=== PATIENT | male | born 1950 | race Caucasian/White ===

== ENCOUNTER 2023-05-11 15:28 | Inpatient (IN) | payer MEDICARE, SELFPAY ==
--- NOTE | ~2023-05-11 | US_ITS ---
EXAMINATION: ULTRASOUND LOWER EXTREMITY ARTERIAL, RIGHT TECHNIQUE: COLOR-FLOW DUPLEX IMAGING OF THE RIGHT LOWER EXTREMITY ARTERIAL SYSTEM. VELOCITY MEASUREMENTS THROUGHOUT THE FEMORAL ARTERIES. CLINICAL INFORMATION: Foot ulcer, question PAD COMPARISON: None. FINDINGS: RIGHT FEMORAL RUNOFF VELOCITIES: The right common femoral artery measures 178cm/s and is triphasic. The right profunda femoral artery measures 149cm/s and is biphasic. Right proximal superficial femoral artery measures 142 cm/s and is triphasic. Mid superficial femoral artery measures 146cm/s and is triphasic. Distal right superficial femoral artery [id number] and is triphasic. Collaterals are noted. Right popliteal velocity measures 185cm/s and is triphasic. Posterior tibial velocity is 49cm/s and flow is monophasic. Peroneal velocity is 145cm/s and flow is monophasic. Anterior tibial velocity is 24.6cm/s and flow is monophasic. Dorsal pedis velocity is 51cm/s and flow is monophasic. Right CHRIS: Not obtained Incidental note is made of right groin lymph nodes the largest measuring 3.2 x 1.1 x 2.5 cm. US/US arterial duplex LE RT IMPRESSION: 1. Patency of the visualized vascular visualized in the right lower extremity. 2. Predominantly infrapopliteal hemodynamic changes in vascular flow with monophasic waveforms throughout and likely an element of stenosis along the peroneal artery which demonstrates elevated velocities. 3. Collaterals are noted along the distal superficial femoral artery. 4. Incidental note is made of right groin lymph nodes the largest measuring 3.2 x 1.1 x 2.5 cm.
--- NOTE | ~2023-05-11 | XR_ITS ---
EXAMINATION: XR FOOT, RIGHT CLINICAL INFORMATION: Evaluate for osteomyelitis. COMPARISON: None available. TECHNIQUE: AP, lateral, and oblique views of the right foot. FINDINGS: Ulceration and swelling adjacent to the medial aspect of the first metatarsophalangeal joint with subtle cortical irregularity and focal lucency in the distal first metatarsal and base of the proximal first phalanx. No fractures or subluxation. Moderate multifocal osteoarthritis. Moderate calcaneal spurs. Scattered vascular calcifications. Diffuse soft tissue swelling. XR/XR foot RT min 3V IMPRESSION: Soft tissue swelling and ulceration adjacent to the medial aspect of the first metatarsophalangeal joint with subtle cortical irregularity and focal lucency in the distal first metatarsal and base of the proximal first phalanx; findings are concerning for osteomyelitis. Further characterization with MRI could be obtained if clinically deemed appropriate.
--- NOTE | ~2023-05-11 | MR_ITS ---
EXAMINATION: MRI FOOT WITHOUT AND WITH CONTRAST, RIGHT CLINICAL INFORMATION: Osteomyelitis. COMPARISON: X-ray 05/11/2023 TECHNIQUE: Imaging in a 1.5 Erica magnet without and with contrast. 10 mL Gadavist. FINDINGS: There is soft tissue swelling and skin ulceration along the plantar/medial aspect of the 1st MTP joint. There is air within the soft tissues. There is soft tissue swelling of the first toe. There is edema and enhancement compatible with cellulitis. There is a low T1/T2 signal curvilinear tract extending from the plantar skin to the medial aspect of the 1st MTP joint/marginating bones and the medial hallux sesamoid. Findings are concerning for a sinus tract. No organized fluid collection/drainable abscess is seen. There is bony irregularity and T2 bright signal in the medial hallux sesamoid, with low T1 signal. Findings suspicious for osteomyelitis. T2 bright signal at the medial aspect of the 1st metatarsal head, with intermediate signal changes, concerning for osteomyelitis. Increased T2 signal in the 1st proximal phalangeal base, concerning for osteomyelitis. Small 1st MTP joint effusion, with mild synovitis; this could represent reactive changes versus septic arthritis. Arthritis in the midfoot, including moderate 4th tarsometatarsal joint arthritis. There is edema in the intrinsic muscles of foot, can be seen with denervation changes versus myositis. Visualized tendons are intact. MR/MR foot RT wo/w con IMPRESSION: Soft tissue swelling and ulceration along the plantar/medial aspect of the 1st MTP joint/subjacent bones. There is edema/cellulitis in the soft tissues. There is a curvilinear low signal focus consistent with a sinus tract extending from the plantar skin to the underlying bones,as detailed above. No drainable fluid collection/abscess is seen. Abnormal findings in the medial aspect of 1st metatarsal head, 1st proximal phalangeal base, suspicious for osteomyelitis. Abnormal findings in the medial hallux sesamoid, nonspecific. Given the presence of soft tissue findings and sinus tract in this region,, osteomyelitis would need to be considered and excluded. Differential consideration includes sesamoiditis from other etiologies. Small 1st MTP joint effusion with mild synovitis. This could reflect reactive changes versus septic arthritis. Additional findings and details as above.
--- NOTE | ~2023-05-11 | US_ITS ---
EXAMINATION: US RETROPERITONEAL LIMITED (RENAL ONLY) CLINICAL INFORMATION: Elevated creatinine. COMPARISON: Renal ultrasound 09/12/2022. TECHNIQUE: Real-time imaging of the kidneys. FINDINGS: Examination is very limited secondary to patient body habitus and shadowing from overlying bowel gas. RIGHT KIDNEY: 11.5 x 7.5 x 6.3 cm (SAG x AP x TRV). The kidney is normal in size, contour, and echogenicity. Renal cortical thickness is normal. No calculi or focal parenchymal lesions. No hydronephrosis. LEFT KIDNEY: 11.9 x 6.2 x 5.4 cm (SAG x AP x TRV). The kidney is normal in size, contour, and echogenicity. Renal cortical thickness is normal. No calculi or focal parenchymal lesions. No hydronephrosis. US/US renal BI IMPRESSION: Very limited examination secondary to patient body habitus. No discrete hydronephrosis or nephrolithiasis.
--- NOTE | 2023-05-11 15:39 | ED.GENADULT ---
HPI - General Adult General Chief complaint: Extremity Injury, Lower Stated complaint: R Foot issue Time Seen by Provider: 05/11/23 16:34 Source: patient Mode of arrival: ambulatory Limitations: no limitations History of Present Illness HPI narrative: 72-year-old male with a history of bym-eascqrs-meljskgfi diabetes, hypertension, hyperlipidemia, diabetic neuropathy here with complaints of right foot wound. Patient reports 2 weeks ago he was in [place] and developed a blister on the right foot. Over the last 3-4 days he has had increasing redness, swelling of the right foot. He denies any fevers or chills. Patient reports that on 05/08 he was started on Bactrim. He had no improvement with Bactrim and so on 05/09 Levaquin was added. He has been taking both medications with no improvement. he denies fevers but has had chills. Patient does have neuropathy so he has no feeling in his foot so he does not elicit any pain. Related Data Allergies Allergy/AdvReac Type Severity Reaction Status Date / Time No Known Allergies Allergy Verified 05/11/23 15:42 [No Known Allergies*] Review of Systems Review of Systems: Yes all other systems are reviewed and are negative Constitutional: Constitutional: Reports no additional constitutional complaints, Denies body ache(s), Reports chills, Denies fever(s), Denies headache(s) and Denies weakness Eyes: Eyes: Reports no additional eye complaints and Denies change in vision ENT: Reports system reviewed and no additional complaints, except as documented, Denies dizziness, Denies headache(s), Denies nasal congestion, Denies nasal discharge and Denies neck pain Cardiovascular: Cardiovascular: Reports no additional cardiovascular complaints, Denies chest pain, Denies leg edema and Denies dyspnea Respiratory: Respiratory: Reports no additional respiratory complaints, Denies cough and Denies dyspnea Gastrointestinal: Gastrointestinal: Reports no additional gastrointestinal complaints, Denies abdominal pain, Denies diarrhea, Denies nausea and Denies vomiting Genitourinary: Genitourinary: Denies urinary incontinence Musculoskeletal: Musculoskeletal: Reports no additional musculoskeletal complaints, Denies back pain, Denies arthralgias, Denies joint swelling, Denies neck pain, Denies numbness and Denies tingling Integumentary/Breasts: Skin/Breast: Reports system reviewed and no additional complaints, except as docu, Reports swelling, Reports erythema, Denies rash and Reports wounds Neurologic: Reports system reviewed and no additional complaints, except as documented, Denies Abnormal speech present, Denies dizziness, Denies headache(s), Denies numbness, Denies tingling and Denies weakness PMFSH Past Medical History Attestation statement: The following information was validated with the patient. Source: old records reviewed and nursing notes reviewed Social History Social History Advance Directives: No Advance Directives Information Provided: No Physical Exam ED Vital Signs: Vital Signs - 24 hr 05/11/23 15:40 Temperature 97.7 F Pulse Rate 80 Respiratory Rate 16 Blood Pressure 118/48 L Pulse Oximetry 97 Oxygen Delivery Method Room Air BMI result Body Mass Index 33.2 Const General: cooperative, healthy appearing, comfortable and no acute distress Orientation/consciousness: patient oriented x3 Limitations: no limitations HENMT Head: Yes normal to inspection Ears: hearing grossly normal bilaterally General nose exam: Normal external nose present Face and sinus: Yes normal facial exam Mouth: Normal oral and palatal mucosa present Throat: Yes posterior oropharynx normal Eyes General: appearance normal, both eyes and all related structures Pupils: Equal, round and reactive pupils present Neck Neck: Yes normal visual inspection Chest Chest palpation & inspection: normal inspection of the chest Resp Effort & Inspection: normal respiratory effort Auscultation: clear to auscultation bilaterally Cardio Rate: regular rate Rhythm: regular rhythm Peripheral pulses: Peripheral pulses 2+ throughout GI Inspection: Yes normal to inspection Palpation (GI): Soft to palpation and nontender Auscultation: normal bowel sounds Back/Spine/Pelvis Thoracic/Lumbar Spine: thoracic and lumbar spine normal to inspection Skin General skin exam: no rashes or lesions noted Neuro General: patient oriented x3, no focal motor deficits and normal sensation to monofilament Cranial nerves: Yes Equal, round and reactive pupils present Cognition (Neuro): normal cognition Speech: No Abnormal speech present Gait exam (Neuro): Normal gait present Motor exam (neuro): 5/5 motor strength present throughout Extrem Other: 2+DP/PT pulses. Normal ROM. Course Course Course Narrative: RME- 72-year-old male presents for evaluation of a reported cellulitis to his right foot. He reports that he had a blister to the bottom of the foot that popped and started to get red and swollen about 1 week ago. He saw his PCP earlier today who referred him to the ER. Plan for labs including blood cultures and x-ray to evaluate for osteolytic changes Reevaluation(s) Reevaluation #1: reviewed labs which show leukocytosis, Anemia, BRITTNEY. BRITTNEY may be secondary to cellulitis and/or recent Bactrim use. Will start IV fluids Medications Administered Generic Name Dose Route Start Last Admin Trade Name Freq PRN Reason Stop Dose Admin Sodium Chloride 1,000 mls @ 999 mls/hr 05/11/23 16:55 05/11/23 16:58 Ns IV 05/11/23 17:55 999 mls/hr .Q1H1M STA Administration Discontinued Medications Generic Name Dose Route Start Last Admin Trade Name Freq PRN Reason Stop Dose Admin Piperacillin Sod/Tazobactam 50 mls @ 100 mls/hr 05/11/23 16:54 05/11/23 17:08 Sod 3.375 gm/ Sodium Chloride IV 05/11/23 17:23 100 mls/hr ONCE ONE Administration Medical Decision Making Medical Decision Making MDM Narrative: [id number] male with a history of miu-nvhyivz-lcmokmtzp diabetes, hypertension, hyperlipidemia, diabetic neuropathy here with complaints of right foot wound. Patient reports 2 weeks ago he was in [place] and developed a blister on the right foot. Over the last 3-4 days he has had increasing redness, swelling of the right foot. He denies any fevers or chills. Patient reports that on 05/08 he was started on Bactrim. He had no improvement with Bactrim and so on 05/09 Levaquin was added. He has been taking both medications with no improvement. he denies fevers but has had chills. Patient does have neuropathy so he has no feeling in his foot so he does not elicit any pain. see pictures in chart of foot. Will need labs including blood cultures and lactic acid, X-ray. at this time infection is suspected. Antibiotics ordered Differential Diagnosis Differential Diagnoses: The differential diagnosis associated with the presentation includes cellulitis, diabetic wound, osteomyelitis low concern for nec fasc with gradual onset, compartment syndrome with soft compressible compartments and or septic joint with FROM Admission/Observation Consideration of admission/observation: Escalation of care including admission/observation considered 72-year-old male with history of diabetes here with a wound to the right foot with active cellulitis despite to oral antibiotics outpatient with concern for osteomyelitis requiring IV antibiotics and admission Consult Healthcare Provider Management of the patient was discussed with: Surveying Teacher I spoke to Dr. Fortune who accepted admission Lab Data MDM Lab Attestation statement: I reviewed the patient's lab results. mild leukocytosis, anemia, renal failure 05/11/23 15:56 05/11/23 15:56 Labs: Lab Results 05/11/23 05/11/23 Range/Units 15:55 15:56 WBC 12.4 H (4.8-10.8) X10*3/uL RBC 3.11 L (4.60-5.80) X10*6/uL Hgb 9.9 L (14.0-18.0) g/dl Hct 29.2 L (42.0-52.0) % MCV 93.9 (80.0-98.0) fL MCH 31.8 (27.0-33.0) pg MCHC 33.9 (31.0-36.0) g/dl RDW 13.1 (11.0-16.0) % Plt Count 343 (160-400) X10*3/uL MPV 8.8 L (9.4-12.4) fL Immature Gran % (Auto) 0.5 H (0.0-0.4) % Neut % (Auto) 78.8 H (45-73) % Lymph % (Auto) 12.3 L (20-40) % [place] % (Auto) 7.7 (2-11) % Eos % (Auto) 0.5 (0-4) % Baso % (Auto) 0.2 (0-2) % Lymph # (Auto) 1.5 (1.2-4.9) X10*3/uL [place] # (Auto) 1.0 (0.1-1.2) X10*3/uL Eos # (Auto) 0.1 (0.0-0.4) X10*3/uL Baso # (Auto) 0.0 (0.0-0.2) X10*3/uL Abs Immat Gran (auto) 0.06 H (0.00-0.03) X10*3/uL Absolute Neuts (auto) 9.8 H (2.0-8.3) x10*3/uL Absolute Nucleated RBC 0.000 (0.0-0.012) X10*3/uL Nucleated RBC % (auto) 0.0 (0.0-0.2) /100WBC Sodium 134 L (135-145) mmol/L Potassium 4.2 (3.3-5.1) mmol/L Chloride 102 (96-108) mmol/L Carbon Dioxide 21 L (22-29) mmol/L Anion Gap 15 (12-20) BUN 26 H (9-16) mg/dL Creatinine 1.90 H (0.5-1.4) mg/dL Estim Creat Clear Calc 43.2 Estimated GFR 35 Random Glucose 216 H (60-115) mg/dL Lactic Acid 1.0 (0.5-2.0) mmol/L Calcium 10.7 H (8.4-10.2) mg/dL Total Bilirubin 0.5 (0.0-1.0) mg/dL AST 15 (5-37) U/L ALT 10 (0-40) U/L Alkaline Phosphatase 73 (39-117) U/L Total Protein 8.4 H (6.5-8.0) g/dL Albumin 4.0 (3.5-5.0) g/dL Lipase 24 (8-78) U/L Independent Interpretation I performed an independent interpretation of an: Plain X-Ray Interpretation: I independently reviewed the x-ray and agree with Radiology report Radiology Impression Discussion of test interpretation with radiology: I have reviewed the radiologist's reading. Radiologist Impression: [place] [id number] XRay Report Signed Patient: Julio Turk MR#: [id number] : 1950 Acct:[id number] Age/Sex: 72 / M ADM Date: 05/11/23 Loc: HO.ED Attending Dr: Ordering Physician: Tulio Charles Date of Service: 05/11/23 Procedure(s): XR foot RT min 3V Accession Number(s): [id number] cc: Emily Echols MD; Tulio Charles ~ EXAMINATION: XR FOOT, RIGHT CLINICAL INFORMATION: Evaluate for osteomyelitis. COMPARISON: None available. TECHNIQUE: AP, lateral, and oblique views of the right foot. FINDINGS: Ulceration and swelling adjacent to the medial aspect of the first metatarsophalangeal joint with subtle cortical irregularity and focal lucency in the distal first metatarsal and base of the proximal first phalanx. No fractures or subluxation. Moderate multifocal osteoarthritis. Moderate calcaneal spurs. Scattered vascular calcifications. Diffuse soft tissue swelling. XR/XR foot RT min 3V IMPRESSION: Soft tissue swelling and ulceration adjacent to the medial aspect of the first metatarsophalangeal joint with subtle cortical irregularity and focal lucency in the distal first metatarsal and base of the proximal first phalanx; findings are concerning for osteomyelitis. Further characterization with MRI could be obtained if clinically deemed appropriate. Discharge Plan Discharge Clinical Impression: Cellulitis, BRITTNEY (acute kidney injury), Leukocytosis, Anemia Patient Disposition: Admitted As Inpatient
[2023-05-11 15:40] VITALS: BP 118/48; PULSE 80; RESP 16; TEMP 36.5; O2SAT 97; BMI 33.2
[2023-05-11 16:10] LABS: MANUAL DIFF FLAG NO
[2023-05-11 16:11] LABS: Basophils Percent Auto 0.2 % (0-2); Eosinophils Absolute Auto 0.1 X10*3/uL (0.0-0.4); Eosinophils Percent Auto 0.5 % (0-4); Hematocrit 29.2 % (42.0-52.0); Hemoglobin 9.9 g/dl (14.0-18.0); Imm Gran Abs Auto 0.06 X10*3/uL (0.00-0.03); Imm Gran Pct Auto 0.5 % (0.0-0.4); Lymphocytes Absolute Auto 1.5 X10*3/uL (1.2-4.9); Lymphocytes Percent Auto 12.3 % (20-40); Mean Corpuscular HGB Conc 33.9 g/dl (31.0-36.0); Mean Corpuscular Hemoglobin 31.8 pg (27.0-33.0); Mean Corpuscular Volume 93.9 fL (80.0-98.0); Mean Platelet Volume 8.8 fL (9.4-12.4); Monocytes Percent Auto 7.7 % (2-11); Neutrophils Absolute Auto 9.8 x10*3/uL (2.0-8.3); Neutrophils Percent Auto 78.8 % (45-73); Platelet Count 343 X10*3/uL (160-400); Red Blood Count 3.11 X10*6/uL (4.60-5.80); Red Cell Distribution Width 13.1 % (11.0-16.0); White Blood Count 12.4 X10*3/uL (4.8-10.8)
[2023-05-11 16:27] LABS: Alanine Aminotransferase 10 U/L (0-40); Alkaline Phosphatase 73 U/L (39-117); Anion Gap 15 (12-20); Aspartate Amino Transferase 15 U/L (5-37); Bilirubin Total 0.5 mg/dL (0.0-1.0); Blood Urea Nitrogen 26 mg/dL (9-16); Calcium 10.7 mg/dL (8.4-10.2); Carbon Dioxide 21 mmol/L (22-29); Chloride 102 mmol/L (96-108); Creatinine Clr Calc Pharmacy 43.2; Estimated Glomerular Filt Rate 35; Glucose Random 216 mg/dL (60-115); Lipase 24 U/L (8-78); Potassium 4.2 mmol/L (3.3-5.1); Sodium 134 mmol/L (135-145); Total Protein 8.4 g/dL (6.5-8.0)
[2023-05-11] MEDS: 0.9 % Sodium Chloride 1,000 ML 999 ML IV (16:58)
[2023-05-11] MEDS: Piperacillin Sodium/Tazobactam 3.375 GM in 0.9 % Sodium Chloride 50 ML IV (17:08)
--- NOTE | 2023-05-11 17:09 | P.HPHOSP_ITS ---
History of Present Illness Date of Service: 05/11/23 <ANDRES Tamayo - Last Filed: 05/11/23 19:50> Attending physician on admission: Clifford Fortune <ANDRES Tamayo - Last Filed: 05/11/23 19:50> Chief Complaint: Right diabetic foot ulcer <ANDRES Tamayo - Last Filed: 05/11/23 19:50> Pt is a 72-year-old male with a PMH significant for?vlq-coiedtr-qacifmdtb diabetes type 2 with diabetic neuropathy, HTN, and HLD who presents to the ED for evaluation right foot wound and redness. Patient with diabetic peripheral neuropathy and states he does feel anything on the bottoms his feet. Two weeks prior pt was on a tour of [place] and reports walking much more than normal. Developed a blister on the bottom of his right foot that eventually popped. Last weekend the patient noticed his right foot beginning to get red and had foul-smelling discharge from the site of his previous blister. The patient saw his driller brake lining who started him on Bactrim on 05/08 and then added Levaquin on 05/09. Patient also spoke to his primary care earlier today who suggested he come to the emergency room for further evaluation and likely need for IV antibiotics. Patient does note that a few years back he developed a large blister at the same site on his right foot, though he did not experience any cellulitis or osteomyelitis at that time and it healed without the use of antibiotics. Reports feeling chills for the past 3 days, but has not taken his temperature. Denies any other systemic symptoms. No nausea, vomiting, abdominal pain. No diarrhea. Denies chest pain/pressure, palpitations. No shortness of breath. In the ED patient was afebrile, with slightly soft BP of 118/48, and satting at 97% on RA. Labs were significant for WBC 12.4, H&H 9.9/29.2, sodium 134, BUN 26, creatinine 1.90, random glucose 216 CRP 18.83, ESR pending. X-ray of right foot showed shows soft tissue swelling and ulceration adjacent to the medial aspect of the 1st metatarsophalangeal joint subtle cortical irregularity and focal lucency concerning for osteomyelitis. Pt was treated with vancomycin, Zosyn and IVF. Pt will be admitted to the hospital for treatment further evaluation of diabetic right foot ulcer concerning for osteomyelitis. <ANDRES Tamayo - Last Filed: 05/11/23 19:50> Review of Systems 2 Review of Systems: Right foot nonhealing ulcer with foul-smelling discharge Right foot erythema and swelling Chills, no measured fever Denies chest pain/pressure, palpitations No shortness of breath Denies nausea, vomiting, abdominal pain, diarrhea <ANDRES Tamayo - Last Filed: 05/11/23 19:50> [facility] Social History: Social History Household Members: None Housing: House Do you presently have visiting nurse or other home services: No Unable to assess alcohol history related to: Unknown Patient Tobacco Use Status: Former Tobacco user Smoked in Last 30 Days: No e-Cigarette/Vaping Use: Never Used Patient Interested in Nicotine Replacement: No Second Hand Smoke Exposure: No Currently Displaying Signs/Symptoms of Drug Intoxication Withdrawal: No Advance Directives: No Advance Directives Information Provided: No Do you have thoughts of harming others: None Do you have a plan to hurt others: No Plan Recently lost weight without trying: No Eating poorly because of decreased appetite: No Nutrition Risks: No Nutritional Risk Poor oral hygiene: No service: No <ANDRES Tamayo Last Filed: 05/11/23 19:50> Meds Allergies/Adverse reactions: Allergies Allergy/AdvReac Type Severity Reaction Status Date / Time No Known Allergies Allergy Verified 05/11/23 15:42 [No Known Allergies*] <ANDRES Tamayo - Last Filed: 05/11/23 19:50> Active Medications: Current Medications Piperacillin Sod/Tazobactam (Sod 3.375 gm/ Sodium Chloride) 50 mls @ 100 mls/hr IV ONCE ONE Stop: 05/11/23 17:23 Last Admin: 05/11/23 17:08 Dose: 100 mls/hr Vancomycin HCl (Vancomycin/Ns) 2,000 mg in 500 mls @ 250 mls/hr IV ONCE ONE Stop: 05/11/23 18:53 Sodium Chloride (Ns) 1,000 mls @ 999 mls/hr IV .Q1H1M STA Stop: 05/11/23 17:55 Last Admin: 05/11/23 16:58 Dose: 999 mls/hr <ANDRES Tamayo - Last Filed: 05/11/23 19:50> Home medications: Home Medications Medication Instructions Recorded Confirmed Last Taken Type allopurinol 300 mg tablet 300 mg PO Q5D 05/11/23 05/11/23 05/09/23 History aspirin 81 mg chewable tablet 81 mg PO DAILY 05/11/23 05/11/23 05/11/23 History cyanocobalamin (vitamin B-12) 1,000 mcg PO DAILY 05/11/23 05/11/23 05/11/23 History 1,000 mcg tablet gabapentin 300 mg capsule 300 mg PO TID 05/11/23 05/11/23 05/11/23 History levofloxacin 500 mg tablet 500 mg PO DAILY 05/11/23 05/11/23 05/11/23 History losartan 25 mg tablet 25 mg PO DAILY 05/11/23 05/11/23 05/11/23 History metformin 1,000 mg tablet 1,000 mg PO BID 05/11/23 05/11/23 05/11/23 History omega 1-opg-jzv-fish oil 1,000 mg 1 cap PO DAILY 05/11/23 05/11/23 05/11/23 History (120 mg-180 mg) capsule (Fish Oil) propranolol 60 mg tablet 10 mg PO BID 05/11/23 05/11/23 05/11/23 History rosuvastatin 40 mg tablet 40 mg PO BEDTIME 05/11/23 05/11/23 05/10/23 History silver sulfadiazine 1 % topical 1 appl topical Q OTHER DAY 05/11/23 05/11/23 Unknown History cream sulfamethoxazole 800 2 tab PO BID 05/11/23 05/11/23 05/11/23 History mg-trimethoprim 160 mg tablet trazodone 100 mg tablet 100 mg PO BEDTIME PRN Insomnia 05/11/23 05/11/23 Unknown History vitamin B complex 1 tab PO DAILY 05/11/23 05/11/23 05/11/23 History <ANDRES Tamayo - Last Filed: 05/11/23 19:50> Physical Exam 2 Vital Signs and Narrative: Vital Signs: Last Vital Signs Temp 97.7 F 05/11/23 15:40 Pulse 80 05/11/23 15:40 Resp 16 05/11/23 15:40 BP 118/48 L 05/11/23 15:40 Pulse Ox 97 05/11/23 15:40 O2 Del Method Room Air 05/11/23 15:40 BMI result Body Mass Index 33.2 <ANDRES Tamayo Last Filed: 05/11/23 19:50> General: AOx3, no acute distress Resp: CTA bilaterally CVS: S1, S2, RRR GI: +BS, NT, no distention Skin: No rash Neuro: Cranial nerves II-XII grossly intact bilaterally. Motor grossly intact bilaterally Extremities: No edema. Swelling of right foot and ankle. Wound with purulent discharge on the bottom of the right foot at first metatarsophalangel joint. Erythema over the dorsal aspect of right foot. As pictured below. Psych: Appropriate affect <ANDRES Tamayo Last Filed: 05/11/23 19:50> Results Labs CBC and Chem 7: 05/12/23 06:16 05/12/23 06:16 <ANDRES Tamayo Last Filed: 05/11/23 19:50> Labs: Laboratory Results - last 24 hr 05/11/23 05/11/23 15:55 15:56 MCV 93.9 MCH 31.8 MCHC 33.9 RDW 13.1 Plt Count 343 MPV 8.8 L Immature Gran % (Auto) 0.5 H Neut % (Auto) 78.8 H Lymph % (Auto) 12.3 L [place] % (Auto) 7.7 Eos % (Auto) 0.5 Baso % (Auto) 0.2 Lymph # (Auto) 1.5 [place] # (Auto) 1.0 Eos # (Auto) 0.1 Baso # (Auto) 0.0 Abs Immat Gran (auto) 0.06 H Absolute Neuts (auto) 9.8 H Absolute Nucleated RBC 0.000 Nucleated RBC % (auto) 0.0 Anion Gap 15 Estim Creat Clear Calc 43.2 Estimated GFR 35 Random Glucose 216 H Lactic Acid 1.0 Calcium 10.7 H Total Bilirubin 0.5 AST 15 ALT 10 Alkaline Phosphatase 73 Total Protein 8.4 H Albumin 4.0 Lipase 24 <ANDRES Tamayo Last Filed: 05/11/23 19:50> Assessment and Plan (1) BRITTNEY (acute kidney injury): Status: Acute <ANDRES Tamayo Last Filed: 05/11/23 19:50> (2) Osteomyelitis: Qualifiers: Laterality: right Osteomyelitis location: foot O steomyelitis type: other acute Qualified Code(s): M86.171 - Other acute osteomyelitis, right ankle and foot <ANDRES Tamayo - Last Filed: 05/11/23 19:50> Status: Acute <ANDRES Tamayo - Last Filed: 05/11/23 19:50> Pt is a 72-year-old male with a PMH significant for?kvh-dpryztg-ryhecaoiq diabetes type 2 with diabetic neuropathy, HTN, and HLD who presents to the ED for evaluation right foot wound and redness. Pt will be admitted to the hospital for treatment further evaluation of diabetic right foot ulcer concerning for osteomyelitis. Diabetic right foot ulcer concerning for osteomyelitis Right foot x-ray concerning for osteomyelitis, ESR 116, C-reactive protein 18.83 Patient does not meet sepsis criteria: WBC's, but no tachycardia, tachypnea, or fever; lactic acid WNL at 1.0 Will treat with IV ABX: Vancomycin, cefepime ID consult Wound care consult Will get arteriolar duplex of affected leg to evaluate for PAD Elevated creatinine, ?BRITTNEY Creatinine 1.90, baseline unknown though was 1.0 earlier in the year at [facility] [place] Patient given IVF in ED, will place on maintenance fluids Will get urine studies: Urine sodium, creatinine, osmolality Will get renal ultrasound Hold losartan Anemia H&H 9.9/29.2, unclear baseline Possibly anemia of chronic disease secondary to CKD Will also check iron studies, B12, folate Follow CBC HTN Continue propranolol Hold losartan d/t likely BRITNTEY, continue as warranted HLD Continue statin Insomnia Continue trazodone Bpk-hvkkrqt-jwqpgykpb diabetes type 2 with peripheral neuropathy Hold metformin Sliding-scale insulin Diabetic diet Continue gabapentin Full Code Attending:?Dr. Fortune DVT Prophylaxis: Lovenox Pt will require a hospitalization of at least two nights for treatment of?diabetic right foot ulcer concerning for osteomyelitis with IV antibiotics and specialist consultation. <ANDRES Tamayo - Last Filed: 05/11/23 19:50> Pt is a 72-year-old male with a PMH significant for?wil-xjyejew-hsliyuuak diabetes type 2 with diabetic neuropathy, HTN, and HLD who presents to the ED for evaluation right foot wound and redness. Pt will be admitted to the hospital for treatment further evaluation of diabetic right foot ulcer concerning for osteomyelitis. Diabetic right foot ulcer concerning for osteomyelitis Right foot x-ray concerning for osteomyelitis, ESR 116, C-reactive protein 18.83 Patient does not meet sepsis criteria: WBC's, but no tachycardia, tachypnea, or fever; lactic acid WNL at 1.0 Will treat with IV ABX: Vancomycin, cefepime ID consult Wound care consult Will get arteriolar duplex of affected leg to evaluate for PAD Elevated creatinine, ?BRITTNEY Creatinine 1.90, baseline unknown though was 1.0 earlier in the year at [facility] [place] Patient given IVF in ED, will place on maintenance fluids Will get urine studies: Urine sodium, creatinine, osmolality Will get renal ultrasound Hold losartan Anemia H&H 9.9/29.2, unclear baseline Possibly anemia of chronic disease secondary to CKD Will also check iron studies, B12, folate Follow CBC HTN Continue propranolol Hold losartan d/t likely BRITTNEY, continue as warranted HLD Continue statin Insomnia Continue trazodone Ogb-dyjcfdj-xcuqnmcru diabetes type 2 with peripheral neuropathy Hold metformin Sliding-scale insulin Diabetic diet Continue gabapentin Full Code Attending:?Dr. Fortune DVT Prophylaxis: Lovenox Pt will require a hospitalization of at least two nights for treatment of?diabetic right foot ulcer concerning for osteomyelitis with IV antibiotics and specialist consultation. Addendum to history and physical by the advanced practice provider, ANDRES Montez I interviewed and examined the patient. I discussed their presentation and management with the FÁTIMA. I reviewed the history and physical and agree with the documentation, with the following additions and corrections: 72yo M with DM2 + neuropathy, HTN, HLD presenting after developing a R foot blister 2 wk ago after hiking through [place] 1 wk ako developed redness around blister and purulent discharge Quarter Supervisor started him on SMX-TMP + levofloxacin Found to have osteomyelitis DM foot ulcer with osteomyelitis - vanco + cefepime, ID consultation, Wound Care consultation, vascular evaluation with Duplex, follow BCx, will need PICC when clear and long-term IV ABX at [facility] BRITTNEY - renal US, urine studies, hydrate, recheck BMP in AM anemia ?chronic - check B12, folate, iron HTN - continue propranolol, hold losartan DM2 - francis-dose lispro neuropathy - gabapentin VTE ppx - LMWH dispo - anticipate home with VNA <Clifford Fortune MD - Last Filed: 05/12/23 11:49> Time Spent With Patient Time: Total time managing care of this patient today ____ minutes. <ANDRES Tamayo - Last Filed: 05/11/23 19:50> Quality Stroke Does the patient have a stroke diagnosis?: No <ANDRES Tamayo - Last Filed: 05/11/23 19:50> VTE Prior VTE?: No <ANDRES Tamayo - Last Filed: 05/11/23 19:50> VTE Risk Level:: Medical - moderate - high <ANDRES Tamayo - Last Filed: 05/11/23 19:50> VTE Device Contraindication: Treatment Not Indicated <ANDRES Tamayo - Last Filed: 05/11/23 19:50> VTE Drug Contraindication: N/A - Med Ordered <ANDRES Tamayo - Last Filed: 05/11/23 19:50>
[2023-05-11 17:38] LABS: C Reactive Protein 18.83 mg/dL (< or = 0.50)
[2023-05-11] MEDS: vancomycin/NS 2,000 MG/500 ML PLAST..BAG 250 MG IV (18:14)
[2023-05-11 18:18] LABS: Glucose, Whole Blood 168 mg/dL (60-115)
[2023-05-11 18:33] LABS: Erythrocyte Sedimentation Rate 116 MM/HR (0-15)
[2023-05-11 19:01] VITALS: BP 130/53; PULSE 82; RESP 18; O2SAT 97
[2023-05-11 19:12] LABS: Iron 33 mcg/dL (45-160); Percent Iron Saturation 16 % (15-50); Total Iron Binding Capacity 203 mcg/dL (228-428); Unsaturated Iron Binding 170 ug/dL
[2023-05-11] MEDS: Lactated Ringers 1,000 ML 100 ML IVCONT (19:19)
[2023-05-11] MEDS: Enoxaparin Sodium 40 MG/0.4 ML SYRINGE SUBCUT (19:20)
--- NOTE | 2023-05-11 19:30 | PC.NURSE ---
Attempted to give report at 1930, RN will call back
[2023-05-11 21:12] VITALS: BP 146/63; PULSE 83; RESP 20; TEMP 36.7; O2SAT 96
[2023-05-11 21:20] LABS: Glucose, Whole Blood 229 mg/dL (60-115)
[2023-05-11] MEDS: Propranolol HCL 10 MG TABLET PO (21:36)
[2023-05-11] MEDS: Atorvastatin Calcium 80 MG TABLET PO (21:36)
[2023-05-11] MEDS: Gabapentin 300 MG CAPSULE PO (21:36)
[2023-05-11] MEDS: Insulin Lispro 100 UNIT/ML 3 ML VIAL SUBCUT (21:38)
[2023-05-11 21:46] VITALS: BMI 33.3
--- NOTE | 2023-05-11 21:53 | PHA.PROG ---
Admission Date/Time: May 11, 2023 17:58 Indication Bone and Joint Weight in k.1 kg Adjusted body weight in K.8 [place] body weight in K Obesity Dosing Indication % IBW: 143% Serum Creatinine - Last 168 Hours 05/11/23 15:56 Creatinine 1.90 H Estimated CrCl and GFR - Last 168 Hours 05/11/23 15:56 Estim Creat Clear Calc 43.2 Estimated GFR 35 Vancomycin Loading Dose: 2000mg Current Vancomycin Dosing Regimen: 1250 mg Q24H Date and Time for next Vancomycin Level to be drawn: 05/14 @ 1600 Pharmacist Comments on Vancomycin Plan: Patient received an adequate load dose in the er 05/11 @ 1814 Maintenance dose vanocmyinc 1250 mg Q24H is scheduled to start 05/12 @ 1800. Expected AUC 517 with a trough of 17.2 Patient is obese with %IBW > 130 therefore carefule monitor is required due to vancomycin high volume of distribution Pharmacy will monitor renal function daily Samara Catherine, Delfino Vancomycin dosing will take advantage of [employer] as a clinical decision support tool that uses Bayesian modeling to calculate individual patient's pharmacokinetic parameters and forecast the patient's drug concentration time course with the target goal AUC 24 range of 400 - 600 mg/L/hr.
[2023-05-11] MEDS: cefEPime HCl 1 GM in 0.9 % Sodium Chloride 50 ML IV (22:47)
[2023-05-11] MEDS: traZODone HCL 100 MG TABLET PO (22:48)
[2023-05-12 00:56] LABS: Osmolality Urine 599 mosm/kg (373-1093)
[2023-05-12 00:57] LABS: Creatinine Urine 140.73 mg/dL
[2023-05-12 04:23] VITALS: BP 126/89; PULSE 75; RESP 16; TEMP 37.2; O2SAT 97
[2023-05-12] MEDS: Lactated Ringers 1,000 ML 100 ML IVCONT ×2 (05:26→17:08)
[2023-05-12 06:34] LABS: Hematocrit 24.1 % (42.0-52.0); Hemoglobin 8.3 g/dl (14.0-18.0); Mean Corpuscular HGB Conc 34.4 g/dl (31.0-36.0); Mean Corpuscular Hemoglobin 31.8 pg (27.0-33.0); Mean Corpuscular Volume 92.3 fL (80.0-98.0); Mean Platelet Volume 8.6 fL (9.4-12.4); Platelet Count 260 X10*3/uL (160-400); Red Blood Count 2.61 X10*6/uL (4.60-5.80); Red Cell Distribution Width 12.8 % (11.0-16.0)
[2023-05-12 06:53] LABS: Anion Gap 14 (12-20); Blood Urea Nitrogen 18 mg/dL (9-16); Calcium 9.3 mg/dL (8.4-10.2); Carbon Dioxide 19 mmol/L (22-29); Chloride 107 mmol/L (96-108); Creatinine Clr Calc Pharmacy 65.3; Estimated Glomerular Filt Rate 56; Glucose Random 172 mg/dL (60-115); Sodium 136 mmol/L (135-145)
[2023-05-12 07:16] VITALS: BP 122/60; PULSE 72; RESP 20; TEMP 36.3; O2SAT 95
[2023-05-12 07:25] LABS: Vitamin B12 719 pg/mL (200-900)
--- NOTE | 2023-05-12 07:31 | PHA.MEDREC ---
Pharmacy Consult ? Medication Reconciliation Pharmacy has completed the medication reconciliation.
[2023-05-12 07:34] LABS: Glucose, Whole Blood 169 mg/dL (60-115)
[2023-05-12] MEDS: Insulin Lispro 100 UNIT/ML 3 ML VIAL SUBCUT ×4 (08:31→20:08)
[2023-05-12 09:25] VITALS: BP 151/67; PULSE 75
[2023-05-12] MEDS: Gabapentin 300 MG CAPSULE PO ×3 (09:43→20:09)
[2023-05-12] MEDS: Propranolol HCL 10 MG TABLET PO ×2 (09:43→20:09)
[2023-05-12] MEDS: Multivitamin TABLET 1 TAB PO (09:43)
[2023-05-12] MEDS: Aspirin 81 MG TAB.CHEW PO (09:43)
[2023-05-12] MEDS: Cyanocobalamin (Vitamin B-12) 1,000 MCG TABLET 1000 MCG PO (09:44)
[2023-05-12 11:20] LABS: Glucose, Whole Blood 207 mg/dL (60-115)
[2023-05-12] MEDS: cefEPime HCl 1 GM in 0.9 % Sodium Chloride 50 ML IV ×2 (11:34→22:04)
--- NOTE | 2023-05-12 11:37 | MHC.CM.PN ---
pt lives alone is independent ,edson,will eva himself home car is in parking lot
--- NOTE | 2023-05-12 11:50 | HO.PM.IMPN ---
Subjective Subjective Date of Service: 05/12/23 Interval History: no pain though largely neuropathic no fever some chills no N/V Review of Systems Review of Systems: Yes all other systems are reviewed and are negative Physical Exam Vital Signs: Vital Signs: Last Vital Signs Temp 97.3 F 05/12/23 07:16 Pulse 75 05/12/23 09:25 Resp 20 05/12/23 07:16 BP 151/67 H 05/12/23 09:25 Pulse Ox 95 05/12/23 07:16 O2 Del Method Room Air 05/12/23 07:16 BMI result Body Mass Index 33.3 Gen: in no acute distress HEENT: sclera anicteric, moist mucus membranes Neck: supple Lungs: clear to auscultation bilaterally Heart: regular rate and rhythm, no murmurs Abd: soft, non-tender, non-distended Ext: no edema Skin: warm/well-perfused, R foot with wound over ball of foot, extensive erythema over dorsum Neuro: alert and oriented x3, dense neuropathy of feet bilaterally Psych: appropriate affect Objective Data Active Medications Acetaminophen (Acetaminophen 325 Mg Tablet) 650 mg PO Q6H PRN PRN Reason: Pain, Mild (Pain Scale 1-3) Allopurinol (Allopurinol 300 Mg Tablet) 300 mg PO Q5D [facility] Aspirin (Aspirin 81 Mg Tab.Chew) 81 mg PO DAILY [facility] Last Admin: 05/12/23 09:43 Dose: 81 mg Documented By: ODILIA Atorvastatin Calcium (Atorvastatin Calcium 80 Mg Tablet) 80 mg PO BEDTIME [facility] Last Admin: 05/11/23 21:36 Dose: 80 mg Documented By: BENJAMÍN Benzonatate (Benzonatate 100 Mg Capsule) 100 mg PO TID PRN PRN Reason: Cough Cyanocobalamin (Cyanocobalamin (Vitamin B-12) 1,000 Mcg Tablet) 1,000 mcg PO DAILY [facility] Last Admin: 05/12/23 09:44 Dose: 1,000 mcg Documented By: ODILIA Dextrose (Dextrose 50 % 25 Gm/50 Ml Syringe) 25 gm IVPUSH Q15M PRN; Protocol PRN Reason: per Hypoglycemia Standing Ord. Docusate Sodium (Docusate Sodium 100 Mg Capsule) 100 mg PO DAILY PRN PRN Reason: Constipation Enoxaparin Sodium (Enoxaparin Sodium 40 Mg/0.4 Ml Syringe) 40 mg SUBCUT Q24H [facility] Last Admin: 05/11/23 19:20 Dose: 40 mg Documented By: HANDY Gabapentin (Gabapentin 300 Mg Capsule) 300 mg PO TID [facility] Last Admin: 05/12/23 09:43 Dose: 300 mg Documented By: ODILIA Glucose (Glucose Gel 15 Gm Gel..Gram.) 15 gm PO Q15M PRN; Protocol PRN Reason: per Hypoglycemia Standing Ord. Cefepime HCl 1 gm/ Sodium (Chloride) 50 mls @ 100 mls/hr IV Q12H [facility] Last Admin: 05/12/23 11:34 Dose: 100 mls/hr Documented By: ODILIA Lactated Ringer's (Lr) 1,000 mls @ 100 mls/hr IVCONT .Q10H [facility] Last Admin: 05/12/23 05:26 Dose: 100 mls/hr Documented By: BENJAMÍN Vancomycin HCl 1,250 mg/ (Sodium Chloride) 250 mls @ 166.667 mls/hr IV Q24H [facility] Insulin Human Lispro (Insulin Lispro 100 Unit/Ml 3 Ml Vial) 0 unit SUBCUT QIDACHS [facility]; Protocol Last Admin: 05/12/23 08:31 Dose: 2 unit Documented By: ODILIA Multivitamins/Vitamin C (Multivitamin Tablet) 1 tab PO DAILY [facility] Last Admin: 05/12/23 09:43 Dose: 1 tab Documented By: ODILIA Ondansetron HCl (Ondansetron Hcl 4 Mg/2 Ml Vial) 4 mg IVPUSH Q8H PRN PRN Reason: Nausea and Vomiting Pharmacy Consult (Consult Rx Vancomycin Dosing) 1 each MISCELLANE DAILY PRN PRN Reason: Consult order Propranolol HCl (Propranolol Hcl 10 Mg Tablet) 10 mg PO BID [facility]; Protocol Last Admin: 05/12/23 09:43 Dose: 10 mg Documented By: ODILIA Silver Sulfadiazine (Silver Sulfadiazine 1 % Cream 20 Gm Tube) 1 appl TOPICAL Q2D [facility] Sodium Chloride (0.9 % Sodium Chloride Flush 3 Ml Syringe) 3 ml IVFLUSH QSHIFT [facility] Last Admin: 05/12/23 09:44 Dose: Not Given Documented By: ODILIA Non-Admin Reason: IV Running Trazodone HCl (Trazodone Hcl 100 Mg Tablet) 100 mg PO BEDTIME PRN PRN Reason: Insomnia Last Admin: 05/11/23 22:48 Dose: 100 mg Documented By: BENJAMÍN Labs 05/12/23 06:16 05/12/23 06:16 Labs: Laboratory Results - last 24 hr 05/11/23 05/11/23 05/11/23 15:55 15:56 18:15 MCV 93.9 MCH 31.8 MCHC 33.9 RDW 13.1 Plt Count 343 MPV 8.8 L Immature Gran % (Auto) 0.5 H Neut % (Auto) 78.8 H Lymph % (Auto) 12.3 L Crook % (Auto) 7.7 Eos % (Auto) 0.5 Baso % (Auto) 0.2 Lymph # (Auto) 1.5 Crook # (Auto) 1.0 Eos # (Auto) 0.1 Baso # (Auto) 0.0 Abs Immat Gran (auto) 0.06 H Absolute Neuts (auto) 9.8 H Absolute Nucleated RBC 0.000 Nucleated RBC % (auto) 0.0 ESR 116 H Anion Gap 15 Estim Creat Clear Calc 43.2 Estimated GFR 35 POC Glucose 168 H Random Glucose 216 H Lactic Acid 1.0 Calcium 10.7 H Iron 33 L TIBC 203 L % Saturation 16 Unsat Iron Binding 170 Total Bilirubin 0.5 AST 15 ALT 10 Alkaline Phosphatase 73 C-Reactive Protein 18.83 H Total Protein 8.4 H Albumin 4.0 Lipase 24 Vitamin B12 Folate Urine Osmolality Ur Random Sodium Urine Creatinine 05/11/23 05/11/23 05/12/23 21:16 23:45 06:16 MCV 92.3 MCH 31.8 MCHC 34.4 RDW 12.8 Plt Count 260 MPV 8.6 L Immature Gran % (Auto) Neut % (Auto) Lymph % (Auto) Crook % (Auto) Eos % (Auto) Baso % (Auto) Lymph # (Auto) Crook # (Auto) Eos # (Auto) Baso # (Auto) Abs Immat Gran (auto) Absolute Neuts (auto) Absolute Nucleated RBC 0.000 Nucleated RBC % (auto) 0.0 ESR Anion Gap 14 Estim Creat Clear Calc 65.3 Estimated GFR 56 POC Glucose 229 H Random Glucose 172 H Lactic Acid Calcium 9.3 D Iron TIBC % Saturation Unsat Iron Binding Total Bilirubin AST ALT Alkaline Phosphatase C-Reactive Protein Total Protein Albumin Lipase Vitamin B12 719 Folate 14.0 Urine Osmolality 599 Ur Random Sodium 86.0 Urine Creatinine 140.73 05/12/23 05/12/23 07:17 11:12 MCV MCH MCHC RDW Plt Count MPV Immature Gran % (Auto) Neut % (Auto) Lymph % (Auto) Crook % (Auto) Eos % (Auto) Baso % (Auto) Lymph # (Auto) Crook # (Auto) Eos # (Auto) Baso # (Auto) Abs Immat Gran (auto) Absolute Neuts (auto) Absolute Nucleated RBC Nucleated RBC % (auto) ESR Anion Gap Estim Creat Clear Calc Estimated GFR POC Glucose 169 H 207 H Random Glucose Lactic Acid Calcium Iron TIBC % Saturation Unsat Iron Binding Total Bilirubin AST ALT Alkaline Phosphatase C-Reactive Protein Total Protein Albumin Lipase Vitamin B12 Folate Urine Osmolality Ur Random Sodium Urine Creatinine Impressions Foot X-Ray 05/11/23 17:09 IMPRESSION: Soft tissue swelling and ulceration adjacent to the medial aspect of the first metatarsophalangeal joint with subtle cortical irregularity and focal lucency in the distal first metatarsal and base of the proximal first phalanx; findings are concerning for osteomyelitis. Further characterization with MRI could be obtained if clinically deemed appropriate. Renal Ultrasound 05/11/23 18:45 IMPRESSION: Very limited examination secondary to patient body habitus. No discrete hydronephrosis or nephrolithiasis. Microbiology Microbiology Results: Microbiology 05/12/23 00:20 Gram Stain - Final Foot - Right Side Assessment and Plan (1) Osteomyelitis: Status: Acute Plan d2 72yo M with DM2 + neuropathy, HTN, HLD presenting after developing a R foot blister 2 wk ago after hiking through [place] then 1 wk ago developed redness around blister and purulent discharge supervisor case loading started him on [id number] + levofloxacin presenting with worsening redness + discharge; found to have osteomyelitis DM foot ulcer with osteomyelitis - vanco + cefepime 05/11-, ID consultation, Wound Care consultation, vascular evaluation with US duplex, follow BCx, will need PICC when clear and long-term IV ABX at home BRITTNEY, resolved - FENa 0.9%, likely was prerenal, resolved with IV hydration, resume losartan anemia likely ACD + DOMENICO - replete ID, check FOBT HTN - continue propranolol and losartan DM2 - francis-dose lispro neuropathy - gabapentin VTE ppx - LMWH dispo - anticipate home with VNA In my clinical judgment, the patient requires continued inpatient hospitalization for the following reasons: IV ABX Time Spent With Patient Time: Total time managing care of this patient today ___40_ minutes. Quality Stroke Does the patient have a stroke diagnosis?: No VTE Prior VTE?: No VTE Risk Level:: Medical - moderate - high VTE Device Contraindication: Treatment Not Indicated VTE Drug Contraindication: N/A - Med Ordered
[2023-05-12 12:12] LABS: Estimated Average Glucose 171 mg/dL; Hemoglobin A1c % 7.6 % (<6.0)
[2023-05-12 13:23] VITALS: BP 129/60; PULSE 72
[2023-05-12] MEDS: Losartan Potassium 25 MG TABLET PO (13:29)
[2023-05-12] MEDS: Ferrous Sulfate 324 MG TABLET.DR PO (13:29)
[2023-05-12 15:04] VITALS: BP 138/63; PULSE 71; RESP 20; TEMP 36.3; O2SAT 97
--- NOTE | 2023-05-12 15:17 | PHA.PROG ---
Admission Date/Time: May 11, 2023 17:58 Indication: BACTEREMIA Weight in k.2 kg Serum Creatinine - Last 168 Hours 05/11/23 05/12/23 15:56 06:16 Creatinine 1.90 H 1.26 Estimated CrCl and GFR - Last 168 Hours 05/11/23 05/12/23 15:56 06:16 Estim Creat Clear Calc 43.2 65.3 Estimated GFR 35 56 Vancomycin Loading Dose: 2000 Current Vancomycin Dosing Regimen: 750 Q24 Vancomycin Monitoring using AUC goal of 400 - 600 range with trough as surrogate marker: 522 Date and Time for next Vancomycin Level to be drawn: 05/14 @ 1300 Pharmacist Comments on Vancomycin Plan: Vancomycin dosing will take advantage of [employer] as a clinical decision support tool that uses Bayesian modeling to calculate individual patient's pharmacokinetic parameters and forecast the patient's drug concentration time course with the target goal AUC 24 range of 400 - 600 mg/L/hr.
[2023-05-12] MEDS: Silver Sulfadiazine 1 % Cream 20 GM TUBE 1 APPL TOPICAL (15:21)
[2023-05-12 16:17] LABS: Glucose, Whole Blood 236 mg/dL (60-115)
[2023-05-12] MEDS: vancomycin HCL 1,250 MG in 0.9 % Sodium Chloride 250 ML 166.67 MG IV (17:06)
[2023-05-12] MEDS: Enoxaparin Sodium 40 MG/0.4 ML SYRINGE SUBCUT (17:06)
[2023-05-12 19:49] VITALS: BP 118/57; PULSE 66; RESP 18; TEMP 36.6; O2SAT 96
[2023-05-12 20:09] LABS: Glucose, Whole Blood 165 mg/dL (60-115)
[2023-05-12] MEDS: Atorvastatin Calcium 80 MG TABLET PO (20:09)
[2023-05-12] MEDS: traZODone HCL 100 MG TABLET PO (20:10)
[2023-05-12] MEDS: 0.9 % Sodium Chloride Flush 3 ML SYRINGE IVFLUSH (20:11)
--- NOTE | 2023-05-12 22:02 | W.PM.IDCN ---
History of Present Illness Data of Consult Service Date: 05/12/23 Requesting physician: Clifford Fortune Primary Care Provider: Emily Echols MD HPI Reason for consult: right diabetic foot infection He presents with right foot first digit redness and swelling. He has no fever or chills. He has had two weeks redness and had take Bactrim and then Levaquin with no help. He was advised to come to ER. Review of Systems Review of Systems: Yes all other systems are reviewed and are negative [facility] Social History Social History Household Members: None Housing: House Do you presently have visiting nurse or other home services: No Unable to assess alcohol history related to: Unknown Patient Tobacco Use Status: Former Tobacco user Smoked in Last 30 Days: No e-Cigarette/Vaping Use: Never Used Patient Interested in Nicotine Replacement: No Second Hand Smoke Exposure: No Currently Displaying Signs/Symptoms of Drug Intoxication Withdrawal: No Advance Directives: No Advance Directives Information Provided: No Do you have thoughts of harming others: None Do you have a plan to hurt others: No Plan Recently lost weight without trying: No Eating poorly because of decreased appetite: No Nutrition Risks: No Nutritional Risk Poor oral hygiene: No service: No Meds Allergies Allergy/AdvReac Type Severity Reaction Status Date / Time No Known Allergies Allergy Verified 05/11/23 15:42 [No Known Allergies*] Active Medications: Current Medications Acetaminophen (Acetaminophen 325 Mg Tablet) 650 mg PO Q6H PRN PRN Reason: Pain, Mild (Pain Scale 1-3) Allopurinol (Allopurinol 300 Mg Tablet) 300 mg PO Q5D [facility] Aspirin (Aspirin 81 Mg Tab.Chew) 81 mg PO DAILY [facility] Last Admin: 05/12/23 09:43 Dose: 81 mg Atorvastatin Calcium (Atorvastatin Calcium 80 Mg Tablet) 80 mg PO BEDTIME [facility] Last Admin: 05/12/23 20:09 Dose: 80 mg Benzonatate (Benzonatate 100 Mg Capsule) 100 mg PO TID PRN PRN Reason: Cough Cyanocobalamin (Cyanocobalamin (Vitamin B-12) 1,000 Mcg Tablet) 1,000 mcg PO DAILY [facility] Last Admin: 05/12/23 09:44 Dose: 1,000 mcg Dextrose (Dextrose 50 % 25 Gm/50 Ml Syringe) 25 gm IVPUSH Q15M PRN; Protocol PRN Reason: per Hypoglycemia Standing Ord. Docusate Sodium (Docusate Sodium 100 Mg Capsule) 100 mg PO DAILY PRN PRN Reason: Constipation Enoxaparin Sodium (Enoxaparin Sodium 40 Mg/0.4 Ml Syringe) 40 mg SUBCUT Q24H [facility] Last Admin: 05/12/23 17:06 Dose: 40 mg Ferrous Sulfate (Ferrous Sulfate 324 Mg Tablet.Dr) 324 mg PO DAILY [facility] Last Admin: 05/12/23 13:29 Dose: 324 mg Gabapentin (Gabapentin 300 Mg Capsule) 300 mg PO TID [facility] Last Admin: 05/12/23 20:09 Dose: 300 mg Glucose (Glucose Gel 15 Gm Gel..Gram.) 15 gm PO Q15M PRN; Protocol PRN Reason: per Hypoglycemia Standing Ord. Cefepime HCl 1 gm/ Sodium (Chloride) 50 mls @ 100 mls/hr IV Q12H [facility] Last Infusion: 05/12/23 12:25 Dose: Infused Lactated Ringer's (Lr) 1,000 mls @ 100 mls/hr IVCONT .Q10H [facility] Last Admin: 05/12/23 17:08 Dose: 100 mls/hr Vancomycin HCl 1,250 mg/ (Sodium Chloride) 250 mls @ 166.667 mls/hr IV Q24H [facility] Last Infusion: 05/12/23 19:03 Dose: Infused Insulin Human Lispro (Insulin Lispro 100 Unit/Ml 3 Ml Vial) 0 unit SUBCUT QIDACHS [facility]; Protocol Last Admin: 05/12/23 20:08 Dose: 2 unit Losartan Potassium (Losartan Potassium 25 Mg Tablet) 25 mg PO DAILY [facility]; Protocol Last Admin: 05/12/23 13:29 Dose: 25 mg Multivitamins/Vitamin C (Multivitamin Tablet) 1 tab PO DAILY [facility] Last Admin: 05/12/23 09:43 Dose: 1 tab Ondansetron HCl (Ondansetron Hcl 4 Mg/2 Ml Vial) 4 mg IVPUSH Q8H PRN PRN Reason: Nausea and Vomiting Pharmacy Consult (Consult Rx Vancomycin Dosing) 1 each MISCELLANE DAILY PRN PRN Reason: Consult order Propranolol HCl (Propranolol Hcl 10 Mg Tablet) 10 mg PO BID [facility]; Protocol Last Admin: 05/12/23 20:09 Dose: 10 mg Silver Sulfadiazine (Silver Sulfadiazine 1 % Cream 20 Gm Tube) 1 appl TOPICAL Q2D [facility] Last Admin: 05/12/23 15:21 Dose: 1 appl Sodium Chloride (0.9 % Sodium Chloride Flush 3 Ml Syringe) 3 ml IVFLUSH QSHIFT [facility] Last Admin: 05/12/23 20:11 Dose: 3 ml Trazodone HCl (Trazodone Hcl 100 Mg Tablet) 100 mg PO BEDTIME PRN PRN Reason: Insomnia Last Admin: 05/12/23 20:10 Dose: 100 mg Home Medications Medication Instructions Recorded Confirmed Last Taken Type allopurinol 300 mg tablet 300 mg PO Q5D 05/11/23 05/11/23 05/09/23 History aspirin 81 mg chewable tablet 81 mg PO DAILY 05/11/23 05/11/23 05/11/23 History cyanocobalamin (vitamin B-12) 1,000 mcg PO DAILY 05/11/23 05/11/23 05/11/23 History 1,000 mcg tablet gabapentin 300 mg capsule 300 mg PO TID 05/11/23 05/11/23 05/11/23 History levofloxacin 500 mg tablet 500 mg PO DAILY 05/11/23 05/11/23 05/11/23 History losartan 25 mg tablet 25 mg PO DAILY 05/11/23 05/11/23 05/11/23 History metformin 1,000 mg tablet 1,000 mg PO BID 05/11/23 05/11/23 05/11/23 History omega 7-nka-dxp-fish oil 1,000 mg 1 cap PO DAILY 05/11/23 05/11/23 05/11/23 History (120 mg-180 mg) capsule (Fish Oil) propranolol 60 mg tablet 10 mg PO BID 05/11/23 05/11/23 05/11/23 History rosuvastatin 40 mg tablet 40 mg PO BEDTIME 05/11/23 05/11/23 05/10/23 History silver sulfadiazine 1 % topical 1 appl topical Q OTHER DAY 05/11/23 05/11/23 Unknown History cream sulfamethoxazole 800 2 tab PO BID 05/11/23 05/11/23 05/11/23 History mg-trimethoprim 160 mg tablet trazodone 100 mg tablet 100 mg PO BEDTIME PRN Insomnia 05/11/23 05/11/23 Unknown History vitamin B complex 1 tab PO DAILY 05/11/23 05/11/23 05/11/23 History Physical Exam Vital Signs: Vital Signs: Last Vital Signs Temp 97.8 F 05/12/23 19:49 Pulse 66 05/12/23 19:49 Resp 18 05/12/23 19:49 BP 118/57 L 05/12/23 19:49 Pulse Ox 96 05/12/23 19:49 O2 Del Method Room Air 05/12/23 19:49 BMI result Body Mass Index 33.3 Results Labs 05/12/23 06:16 05/12/23 06:16 Labs: Short CBC 05/12/23 Range/Units 06:16 WBC 9.0 (4.8-10.8) X10*3/uL Hgb 8.3 L (14.0-18.0) g/dl Hct 24.1 L (42.0-52.0) % Plt Count 260 (160-400) X10*3/uL BMP 05/12/23 06:16 Sodium 136 Potassium 4.0 Chloride 107 Carbon Dioxide 19 L BUN 18 H Creatinine 1.26 Calcium 9.3 D Microbiology Microbiology Results: Microbiology 05/11/23 17:17 Blood - Venous Blood Culture - Preliminary No growth after 24 hours. 05/11/23 15:56 Blood - Venous Blood Culture - Preliminary No growth after 24 hours. 05/12/23 00:20 Foot - Right Side Gram Stain - Final Assessment and Plan (1) Osteomyelitis: Qualifiers: Osteomyelitis type: other acute Osteomyelitis location: foot Laterality: right Qualified Code(s): M86.171 - Other acute osteomyelitis, right ankle and foot Status: Acute Concern over OM first digit He has unknown vascular status. Check MRI right foot. Continue current antibiots for now,Cefepime,Vancomycin. and consider add Flagyl. (2) Cellulitis: Status: Acute Time Spent With Patient Time: Total time managing care of this patient today ____ minutes.
--- NOTE | 2023-05-12 22:24 | PM.EVENT ---
Event Note Date of Service: 05/12/23 Event Note: physical exam Heent PERRLA oropharynx clear Lungs clear Cor RRR ns1,s2 Abd soft,nontender Ext right great toe swelling,malodor neuropathy feet Time Spent With Patient Time: Total time managing care of this patient today ____ minutes.
[2023-05-13 01:07] VITALS: BP 122/58; PULSE 69; RESP 18; TEMP 36.6; O2SAT 97
[2023-05-13] MEDS: Lactated Ringers 1,000 ML 100 ML IVCONT (02:16)
[2023-05-13 05:35] LABS: Hematocrit 24.4 % (42.0-52.0); Hemoglobin 8.3 g/dl (14.0-18.0); Mean Corpuscular Hemoglobin 31.6 pg (27.0-33.0); Mean Corpuscular Volume 92.8 fL (80.0-98.0); Mean Platelet Volume 8.6 fL (9.4-12.4); Platelet Count 272 X10*3/uL (160-400); Red Blood Count 2.63 X10*6/uL (4.60-5.80); Red Cell Distribution Width 12.7 % (11.0-16.0); White Blood Count 9.6 X10*3/uL (4.8-10.8)
[2023-05-13 05:48] LABS: Anion Gap 14 (12-20); Blood Urea Nitrogen 16 mg/dL (9-16); Calcium 9.6 mg/dL (8.4-10.2); Carbon Dioxide 19 mmol/L (22-29); Chloride 108 mmol/L (96-108); Creatinine Clr Calc Pharmacy 72.8; Estimated Glomerular Filt Rate > 60; Glucose Random 180 mg/dL (60-115); Potassium 4.2 mmol/L (3.3-5.1); Sodium 137 mmol/L (135-145)
[2023-05-13 07:26] VITALS: BP 128/60; PULSE 50; RESP 16; TEMP 36.2; O2SAT 97
--- NOTE | 2023-05-13 07:45 | HE.PHANOTE ---
RE: VANCO Patients renal function improved. increased dose to 1500 mg Q24H. level 05/14 @1600 predicted AUC 421
[2023-05-13 08:10] LABS: Glucose, Whole Blood 190 mg/dL (60-115)
[2023-05-13] MEDS: Cyanocobalamin (Vitamin B-12) 1,000 MCG TABLET 1000 MCG PO (08:15)
[2023-05-13] MEDS: Multivitamin TABLET 1 TAB PO (08:15)
[2023-05-13] MEDS: Gabapentin 300 MG CAPSULE PO ×3 (08:15→20:41)
[2023-05-13] MEDS: Aspirin 81 MG TAB.CHEW PO (08:15)
[2023-05-13] MEDS: Ferrous Sulfate 324 MG TABLET.DR PO (08:15)
[2023-05-13] MEDS: Insulin Lispro 100 UNIT/ML 3 ML VIAL SUBCUT ×3 (08:15→20:41)
[2023-05-13] MEDS: Losartan Potassium 25 MG TABLET PO (08:15)
[2023-05-13] MEDS: Propranolol HCL 10 MG TABLET PO ×2 (08:15→20:40)
--- NOTE | 2023-05-13 09:40 | HO.PM.IMPN ---
Subjective Subjective Date of Service: 05/13/23 Interval History: no pain no fever Review of Systems Review of Systems: Yes all other systems are reviewed and are negative Physical Exam Vital Signs: Vital Signs: Last Vital Signs Temp 97.1 F 05/13/23 07:26 Pulse 50 05/13/23 07:26 Resp 16 05/13/23 07:26 BP 128/60 05/13/23 07:26 Pulse Ox 97 05/13/23 07:26 O2 Del Method Room Air 05/13/23 07:26 BMI result Body Mass Index 33.3 Gen: in no acute distress HEENT: sclera anicteric, moist mucus membranes Neck: supple Lungs: clear to auscultation bilaterally Heart: regular rate and rhythm, no murmurs Abd: soft, non-tender, non-distended Ext: no edema Skin: warm/well-perfused, R foot with wound over ball of foot, extensive erythema over dorsum Neuro: alert and oriented x3, dense neuropathy of feet bilaterally Psych: appropriate affect Objective Data Active Medications Acetaminophen (Acetaminophen 325 Mg Tablet) 650 mg PO Q6H PRN PRN Reason: Pain, Mild (Pain Scale 1-3) Allopurinol (Allopurinol 300 Mg Tablet) 300 mg PO Q5D [facility] Aspirin (Aspirin 81 Mg Tab.Chew) 81 mg PO DAILY [facility] Last Admin: 05/13/23 08:15 Dose: 81 mg Documented By: SUBHASH Atorvastatin Calcium (Atorvastatin Calcium 80 Mg Tablet) 80 mg PO BEDTIME [facility] Last Admin: 05/12/23 20:09 Dose: 80 mg Documented By: BLANQUITA Benzonatate (Benzonatate 100 Mg Capsule) 100 mg PO TID PRN PRN Reason: Cough Cyanocobalamin (Cyanocobalamin (Vitamin B-12) 1,000 Mcg Tablet) 1,000 mcg PO DAILY [facility] Last Admin: 05/13/23 08:15 Dose: 1,000 mcg Documented By: SUBHASH Dextrose (Dextrose 50 % 25 Gm/50 Ml Syringe) 25 gm IVPUSH Q15M PRN; Protocol PRN Reason: per Hypoglycemia Standing Ord. Docusate Sodium (Docusate Sodium 100 Mg Capsule) 100 mg PO DAILY PRN PRN Reason: Constipation Enoxaparin Sodium (Enoxaparin Sodium 40 Mg/0.4 Ml Syringe) 40 mg SUBCUT Q24H [facility] Last Admin: 05/12/23 17:06 Dose: 40 mg Documented By: ADELINA Ferrous Sulfate (Ferrous Sulfate 324 Mg Tablet.) 324 mg PO DAILY [facility] Last Admin: 05/13/23 08:15 Dose: 324 mg Documented By: SUBHASH Gabapentin (Gabapentin 300 Mg Capsule) 300 mg PO TID [facility] Last Admin: 05/13/23 08:15 Dose: 300 mg Documented By: SUBHASH Glucose (Glucose Gel 15 Gm Gel..Gram.) 15 gm PO Q15M PRN; Protocol PRN Reason: per Hypoglycemia Standing Ord. Cefepime HCl 1 gm/ Sodium (Chloride) 50 mls @ 100 mls/hr IV Q12H [facility] Last Infusion: 05/12/23 22:45 Dose: Infused Documented By: BLANQUITA Lactated Ringer's (Lr) 1,000 mls @ 100 mls/hr IVCONT .Q10H [facility] Last Admin: 05/13/23 02:16 Dose: 100 mls/hr Documented By: BLANQUITA Vancomycin HCl 1,500 mg/ (Sodium Chloride) 500 mls @ 333.333 mls/hr IV Q24H [facility] Insulin Human Lispro (Insulin Lispro 100 Unit/Ml 3 Ml Vial) 0 unit SUBCUT QIDACHS [facility]; Protocol Last Admin: 05/13/23 08:15 Dose: 2 unit Documented By: SUBHASH Losartan Potassium (Losartan Potassium 25 Mg Tablet) 25 mg PO DAILY [facility]; Protocol Last Admin: 05/13/23 08:15 Dose: 25 mg Documented By: SUBHASH Multivitamins/Vitamin C (Multivitamin Tablet) 1 tab PO DAILY [facility] Last Admin: 05/13/23 08:15 Dose: 1 tab Documented By: SUBHASH Ondansetron HCl (Ondansetron Hcl 4 Mg/2 Ml Vial) 4 mg IVPUSH Q8H PRN PRN Reason: Nausea and Vomiting Pharmacy Consult (Consult Rx Vancomycin Dosing) 1 each MISCELLANE DAILY PRN PRN Reason: Consult order Propranolol HCl (Propranolol Hcl 10 Mg Tablet) 10 mg PO BID [facility]; Protocol Last Admin: 05/13/23 08:15 Dose: 10 mg Documented By: SUBHASH Silver Sulfadiazine (Silver Sulfadiazine 1 % Cream 20 Gm Tube) 1 appl TOPICAL Q2D [facility] Last Admin: 05/12/23 15:21 Dose: 1 appl Documented By: S-SCOTJ Sodium Chloride (0.9 % Sodium Chloride Flush 3 Ml Syringe) 3 ml IVFLUSH QSHIFT [facility] Last Admin: 05/13/23 08:16 Dose: Not Given Documented By: SUBHASH Non-Admin Reason: IV Running Trazodone HCl (Trazodone Hcl 100 Mg Tablet) 100 mg PO BEDTIME PRN PRN Reason: Insomnia Last Admin: 05/12/23 20:10 Dose: 100 mg Documented By: BLANQUITA Labs 05/13/23 05:15 05/13/23 05:15 Labs: Laboratory Results - last 24 hr 05/12/23 05/12/23 05/12/23 06:16 11:12 16:11 MCV MCH MCHC RDW Plt Count MPV Absolute Nucleated RBC Nucleated RBC % (auto) Anion Gap Estim Creat Clear Calc Estimated GFR POC Glucose 207 H 236 H Random Glucose Estimat Average Glucose 171 Hemoglobin A1c % 7.6 H Calcium 05/12/23 05/13/23 05/13/23 20:03 05:15 08:04 MCV 92.8 MCH 31.6 MCHC 34.0 RDW 12.7 Plt Count 272 MPV 8.6 L Absolute Nucleated RBC 0.000 Nucleated RBC % (auto) 0.0 Anion Gap 14 Estim Creat Clear Calc 72.8 Estimated GFR > 60 POC Glucose 165 H 190 H Random Glucose 180 H Estimat Average Glucose Hemoglobin A1c % Calcium 9.6 Impressions Duplex Scan Lower Extremity Artery 05/11/23 18:30 IMPRESSION: 1. Patency of the visualized vascular visualized in the right lower extremity. 2. Predominantly infrapopliteal hemodynamic changes in vascular flow with monophasic waveforms throughout and likely an element of stenosis along the peroneal artery which demonstrates elevated velocities. 3. Collaterals are noted along the distal superficial femoral artery. 4. Incidental note is made of right groin lymph nodes the largest measuring 3.2 x 1.1 x 2.5 cm. Microbiology Microbiology Results: Microbiology 05/11/23 17:17 Blood Culture - Preliminary Blood - Venous No growth after 24 hours. 05/11/23 15:56 Blood Culture - Preliminary Blood - Venous No growth after 24 hours. 05/12/23 00:20 Gram Stain - Final Foot - Right Side Assessment and Plan (1) Osteomyelitis: Status: Acute Plan d3 72yo M with DM2 + neuropathy, HTN, HLD presenting after developing a R foot blister 2 wk ago after hiking through [place] then 1 wk ago developed redness around blister and purulent discharge accounting coordinator started him on [id number] + levofloxacin 2 wk prior to admission presenting with worsening redness + discharge; found to have osteomyelitis DM foot ulcer with osteomyelitis - vanco + cefepime 05/11-, metronidaozle 05/13- per ID consultation and will also order MRI - once BCx will need PICC [tomorrow as long as BCx clear] and likely 6 wk of IV ABX, choice to discuss with ID PAD - peroneal stenosis on arterial Duplex. will consult Vasc Surg BRITTNEY, resolved - FENa 0.9%, likely was prerenal, resolved with IV hydration, resumed losartan anemia likely ACD + DOMENICO - replete ID, check FOBT HTN - continue propranolol and losartan DM2 - francis-dose lispro neuropathy - gabapentin VTE ppx - LMWH dispo - anticipate home with VNA In my clinical judgment, the patient requires continued inpatient hospitalization for the following reasons: IV ABX Time Spent With Patient Time: Total time managing care of this patient today __40__ minutes. Quality Stroke Does the patient have a stroke diagnosis?: No VTE Prior VTE?: No VTE Risk Level:: Medical - moderate - high VTE Device Contraindication: Treatment Not Indicated VTE Drug Contraindication: N/A - Med Ordered
[2023-05-13] MEDS: metroNIDAZOLE/NS 500 MG/100 ML PIGGYBACK 100 MG IV ×2 (10:13→17:54)
[2023-05-13] MEDS: cefEPime HCl 1 GM in 0.9 % Sodium Chloride 50 ML IV ×2 (11:18→22:34)
[2023-05-13 11:27] LABS: Glucose, Whole Blood 256 mg/dL (60-115)
[2023-05-13] MEDS: 0.9 % Sodium Chloride Flush 3 ML SYRINGE IVFLUSH ×2 (15:28→22:34)
[2023-05-13 15:30] VITALS: BP 126/59; PULSE 64; RESP 16; TEMP 36.4; O2SAT 99
[2023-05-13 16:05] LABS: Glucose, Whole Blood 131 mg/dL (60-115)
[2023-05-13] MEDS: Enoxaparin Sodium 40 MG/0.4 ML SYRINGE SUBCUT (17:54)
[2023-05-13] MEDS: vancomycin HCL 1,500 MG in 0.9 % Sodium Chloride 500 ML 333.33 MG IV (19:13)
[2023-05-13 19:50] VITALS: BP 134/60; PULSE 80; RESP 17; TEMP 37.3; O2SAT 95
[2023-05-13 20:25] LABS: Glucose, Whole Blood 210 mg/dL (60-115)
[2023-05-13] MEDS: Atorvastatin Calcium 80 MG TABLET PO (20:40)
[2023-05-14] MEDS: metroNIDAZOLE/NS 500 MG/100 ML PIGGYBACK 100 MG IV ×3 (01:28→17:32)
[2023-05-14 03:48] VITALS: BP 120/66; PULSE 67; RESP 16; TEMP 37.3; O2SAT 98
[2023-05-14 06:15] LABS: Creatinine Clr Calc Pharmacy 68.5; Estimated Glomerular Filt Rate 60
[2023-05-14 07:14] VITALS: BP 149/65; PULSE 55; RESP 18; TEMP 36.6; O2SAT 96
[2023-05-14] MEDS: Propranolol HCL 10 MG TABLET PO ×2 (08:28→20:55)
[2023-05-14] MEDS: 0.9 % Sodium Chloride Flush 3 ML SYRINGE IVFLUSH ×3 (08:28→22:23)
[2023-05-14] MEDS: Ferrous Sulfate 324 MG TABLET.DR PO (08:28)
[2023-05-14] MEDS: Aspirin 81 MG TAB.CHEW PO (08:28)
[2023-05-14] MEDS: Losartan Potassium 25 MG TABLET PO (08:28)
[2023-05-14] MEDS: Multivitamin TABLET 1 TAB PO (08:28)
[2023-05-14] MEDS: Cyanocobalamin (Vitamin B-12) 1,000 MCG TABLET 1000 MCG PO (08:28)
[2023-05-14] MEDS: Gabapentin 300 MG CAPSULE PO ×3 (08:28→20:55)
[2023-05-14] MEDS: allopurinoL 300 MG TABLET PO (08:48)
[2023-05-14 08:59] LABS: Glucose, Whole Blood 190 mg/dL (60-115)
--- NOTE | 2023-05-14 10:45 | PM.CNGS ---
History of Present Illness Consult details Consult date: 05/14/23 Reason for consult: wound care Review of Systems Review of Systems: Yes all other systems are reviewed and are negative Constitutional: Constitutional: Reports no additional constitutional complaints ENT: Reports Normal hearing present Cardiovascular: Cardiovascular: Denies chest pain, Denies chest pain at rest, Denies chest pain with activity and Denies pedal edema Respiratory: Respiratory: Denies cough Gastrointestinal: Gastrointestinal: Denies abdominal pain Musculoskeletal: Musculoskeletal: Denies abnormal gait, Denies muscle cramps and Denies radiating pain into limb Integumentary/Breasts: Skin/Breast: Denies skin ulcer and Denies wounds Neurologic: Reports Normal hearing present and Denies abnormal gait Psychiatric: Psychiatric: Reports no additional psychiatric complaints [facility] Social History Social History Household Members: None Housing: House Do you presently have visiting nurse or other home services: No Unable to assess alcohol history related to: Unknown Patient Tobacco Use Status: Former Tobacco user Smoked in Last 30 Days: No e-Cigarette/Vaping Use: Never Used Patient Interested in Nicotine Replacement: No Second Hand Smoke Exposure: No Currently Displaying Signs/Symptoms of Drug Intoxication Withdrawal: No Advance Directives: No Advance Directives Information Provided: No Do you have thoughts of harming others: None Do you have a plan to hurt others: No Plan Recently lost weight without trying: No Eating poorly because of decreased appetite: No Nutrition Risks: No Nutritional Risk Poor oral hygiene: No service: No Meds Allergies Allergy/AdvReac Type Severity Reaction Status Date / Time No Known Allergies Allergy Verified 05/11/23 15:42 [No Known Allergies*] Active Medications: Current Medications Acetaminophen (Acetaminophen 325 Mg Tablet) 650 mg PO Q6H PRN PRN Reason: Pain, Mild (Pain Scale 1-3) Allopurinol (Allopurinol 300 Mg Tablet) 300 mg PO Q5D [facility] Last Admin: 05/14/23 08:48 Dose: 300 mg Aspirin (Aspirin 81 Mg Tab.Chew) 81 mg PO DAILY [facility] Last Admin: 05/14/23 08:28 Dose: 81 mg Atorvastatin Calcium (Atorvastatin Calcium 80 Mg Tablet) 80 mg PO BEDTIME [facility] Last Admin: 05/13/23 20:40 Dose: 80 mg Benzonatate (Benzonatate 100 Mg Capsule) 100 mg PO TID PRN PRN Reason: Cough Cyanocobalamin (Cyanocobalamin (Vitamin B-12) 1,000 Mcg Tablet) 1,000 mcg PO DAILY [facility] Last Admin: 05/14/23 08:28 Dose: 1,000 mcg Dextrose (Dextrose 50 % 25 Gm/50 Ml Syringe) 25 gm IVPUSH Q15M PRN; Protocol PRN Reason: per Hypoglycemia Standing Ord. Docusate Sodium (Docusate Sodium 100 Mg Capsule) 100 mg PO DAILY PRN PRN Reason: Constipation Enoxaparin Sodium (Enoxaparin Sodium 40 Mg/0.4 Ml Syringe) 40 mg SUBCUT Q24H [facility] Last Admin: 05/13/23 17:54 Dose: 40 mg Ferrous Sulfate (Ferrous Sulfate 324 Mg Tablet.Dr) 324 mg PO DAILY [facility] Last Admin: 05/14/23 08:28 Dose: 324 mg Gabapentin (Gabapentin 300 Mg Capsule) 300 mg PO TID [facility] Last Admin: 05/14/23 08:28 Dose: 300 mg Glucose (Glucose Gel 15 Gm Gel..Gram.) 15 gm PO Q15M PRN; Protocol PRN Reason: per Hypoglycemia Standing Ord. Cefepime HCl 1 gm/ Sodium (Chloride) 50 mls @ 100 mls/hr IV Q12H [facility] Last Infusion: 05/13/23 23:04 Dose: Infused Vancomycin HCl 1,500 mg/ (Sodium Chloride) 500 mls @ 333.333 mls/hr IV Q24H [facility] Last Infusion: 05/13/23 20:56 Dose: Infused Metronidazole (Flagyl) 500 mg in 100 mls @ 100 mls/hr IV Q8H [facility] Last Infusion: 05/14/23 10:23 Dose: Infused Insulin Human Lispro (Insulin Lispro 100 Unit/Ml 3 Ml Vial) 0 unit SUBCUT QIDACHS [facility]; Protocol Last Admin: 05/14/23 07:48 Dose: Not Given Losartan Potassium (Losartan Potassium 25 Mg Tablet) 25 mg PO DAILY [facility]; Protocol Last Admin: 05/14/23 08:28 Dose: 25 mg Multivitamins/Vitamin C (Multivitamin Tablet) 1 tab PO DAILY [facility] Last Admin: 05/14/23 08:28 Dose: 1 tab Ondansetron HCl (Ondansetron Hcl 4 Mg/2 Ml Vial) 4 mg IVPUSH Q8H PRN PRN Reason: Nausea and Vomiting Pharmacy Consult (Consult Rx Vancomycin Dosing) 1 each MISCELLANE DAILY PRN PRN Reason: Consult order Propranolol HCl (Propranolol Hcl 10 Mg Tablet) 10 mg PO BID [facility]; Protocol Last Admin: 05/14/23 08:28 Dose: 10 mg Silver Sulfadiazine (Silver Sulfadiazine 1 % Cream 20 Gm Tube) 1 appl TOPICAL Q2D [facility] Last Admin: 05/14/23 10:27 Dose: Not Given Sodium Chloride (0.9 % Sodium Chloride Flush 3 Ml Syringe) 3 ml IVFLUSH QSHIFT [facility] Last Admin: 05/14/23 08:28 Dose: 3 ml Trazodone HCl (Trazodone Hcl 100 Mg Tablet) 100 mg PO BEDTIME PRN PRN Reason: Insomnia Last Admin: 05/12/23 20:10 Dose: 100 mg Home Medications Medication Instructions Recorded Confirmed Last Taken Type allopurinol 300 mg tablet 300 mg PO Q5D 05/11/23 05/11/23 05/09/23 History aspirin 81 mg chewable tablet 81 mg PO DAILY 05/11/23 05/11/23 05/11/23 History cyanocobalamin (vitamin B-12) 1,000 mcg PO DAILY 05/11/23 05/11/23 05/11/23 History 1,000 mcg tablet gabapentin 300 mg capsule 300 mg PO TID 05/11/23 05/11/23 05/11/23 History levofloxacin 500 mg tablet 500 mg PO DAILY 05/11/23 05/11/23 05/11/23 History losartan 25 mg tablet 25 mg PO DAILY 05/11/23 05/11/23 05/11/23 History metformin 1,000 mg tablet 1,000 mg PO BID 05/11/23 05/11/23 05/11/23 History omega 4-iex-huo-fish oil 1,000 mg 1 cap PO DAILY 05/11/23 05/11/23 05/11/23 History (120 mg-180 mg) capsule (Fish Oil) propranolol 60 mg tablet 10 mg PO BID 05/11/23 05/11/23 05/11/23 History rosuvastatin 40 mg tablet 40 mg PO BEDTIME 05/11/23 05/11/23 05/10/23 History silver sulfadiazine 1 % topical 1 appl topical Q OTHER DAY 05/11/23 05/11/23 Unknown History cream sulfamethoxazole 800 2 tab PO BID 05/11/23 05/11/23 05/11/23 History mg-trimethoprim 160 mg tablet trazodone 100 mg tablet 100 mg PO BEDTIME PRN Insomnia 05/11/23 05/11/23 Unknown History vitamin B complex 1 tab PO DAILY 05/11/23 05/11/23 05/11/23 History Physical Exam Vital Signs: Vital Signs: Last Vital Signs Temp 97.8 F 05/14/23 07:14 Pulse 55 05/14/23 07:14 Resp 18 05/14/23 07:14 BP 149/65 H 05/14/23 07:14 Pulse Ox 96 05/14/23 07:14 O2 Del Method Room Air 05/14/23 07:14 BMI result Body Mass Index 33.3 Const: General: cooperative, healthy appearing and comfortable Orientation/consciousness: oriented to person, oriented to place and oriented to time HEENT: Head: Yes normal to inspection Neck: Neck: Yes normal visual inspection Carotids: no bruits Chest: Chest palpation & inspection: normal inspection of the chest Resp: Effort & Inspection: normal respiratory effort and able to speak in complete sentences Auscultation: clear to auscultation bilaterally, no crackles, no rales, no rhonchi and no wheezes Cardio: Other: Bilateral DP signals Rate: regular rate Rhythm: regular rhythm Heart sounds: S1 normal heart sound present and S2 normal heart sound present Bruits: no carotid bruits Peripheral pulses: Peripheral pulses 2+ throughout GI: Inspection: Yes normal to inspection Skin: Other: Right great toe with underlying plantar ulcer which connects laterally. Wounds: no wounds Hair: normal Neuro: General: oriented to person, oriented to place and oriented to time Cranial nerves: Yes CN's II-XII intact bilaterally and Yes Normal hearing present Cognition (Neuro): normal cognition Motor exam (neuro): 5/5 motor strength present throughout Extrem: Other: venous exam: No significant superficial varicosities or spider telangiectasias, minimal edema General: No clubbing, No cyanosis and No edema Psych: Appearance: grossly normal Mental Status: mental status grossly normal Speech and movement: Normal speech and movement present Results Labs 05/13/23 05:15 05/14/23 05:10 Labs: Abnormal lab results 05/13/23 05/13/23 05/13/23 Range/Units 11:21 16:01 20:16 POC Glucose 256 H 131 H 210 H (60-115) mg/dL 05/14/23 Range/Units 07:18 POC Glucose 190 H (60-115) mg/dL BMP 05/14/23 05:10 Creatinine 1.20 All other labs normal. Assessment and Plan (1) Ulcer of right great toe due to diabetes mellitus: Status: Acute In short patient has right foot diabetic ulcer. At the current time will await MRI results. Patient does have an element of arterial insufficiency. Will need to work that up. (2) PAD (peripheral artery disease): Status: Acute Plan The patient does have an element of PA D. Arterial testing was reviewed and does note some SFA disease along with below knee disease. Will await MRI results and workup of underlying osteo 1st. It does appear that his renal insufficiency has stabilized. Will observe that as well. We will monitor this patient closely with you. Thank you for allowing us to assist in his care. Time Spent With Patient Time: Total time managing care of this patient today ____ minutes. Procedures Date of Service Date of Service: 05/14/23
[2023-05-14] MEDS: cefEPime HCl 1 GM in 0.9 % Sodium Chloride 50 ML IV ×2 (11:04→22:23)
[2023-05-14 11:19] LABS: Glucose, Whole Blood 162 mg/dL (60-115)
[2023-05-14] MEDS: Insulin Lispro 100 UNIT/ML 3 ML VIAL SUBCUT ×3 (11:40→20:55)
--- NOTE | 2023-05-14 11:58 | HO.WOUND ---
Wound Consult: Initial 72yr old male admitted to [facility] on?05/11/23 17:58 - See progress notes and H&P for detailed history. Arrival to bedside - pt agreeable to wound assessment and photo upload. He reports he has had the wound for a few weeks secondary to [place] trip with lots of walking. He reports he does have neuropathy and reports understanding the importance of good well fitting shoes and foot assessment daily. He reports he follows regularly with his manugrapher. His manugrapher has recommended he follow up with Outpatient Wound Clinic at time of D/C. After assessment pt was advised Lateral blistered area may open at the plantar foot wound communicates with this area already. Thick foot epidemal layer is in place but no tissue noted when probed. Right Plantar Foot Etiology: Diabetic Wound Measurements: 1.2cm x 1.8cm x 1.5cm with undermining from 12-2 o'clock max depth of 2cm connecting to blister at 1st MTP Joint Wound Bed: Red pink moist tissue with observable necrotic yellow slough Drainage / Odor: Malodorous drainage - able to palpate blister with seropurulent drainage expressed from wound bed Edges: ? callused and unattached Agnes wound: ?Induration at open wound site - fluctuance noted at lateral MTP joint site / blister site Decrease in Erythema assessed based on photo review at the time of admission Pain: No pain Goals of Treatment: ? Packing for autolytic debridement - Surgery and ID to follow - Pt pending MRI and outpt follow up wound clinic at time of D/C Recommendations: 1. Turn and Reposition every 2 hours and as needed for patient comfort consider use of wedges available in the storeroom. 2. Off Load all bony prominences with use of pillows, wedges and heel boots. 3. Monitor for incontinence and moisture control. 4. Provide adequate and supplemental nutrition. 5. Order or Continue low air loss mattress. 6. Maintain blood glucose levels per Providers orders. 7. Right Plantar - Off Load Pressure , Elevate Right Leg - Cleanse and irrigate with saline, pat dry. Apply skin prep to the periwound, lightly pack wound bed with Plain packing strip be sure to leave a wick for easy removal, cover with dry gauze, ABD Pad and gauze wrap. Change Daily. Re-consult wound care Nurse for wound deterioration or wound changes
[2023-05-14] MEDS: gadobutroL 10 ML VIAL IVPUSH (14:14)
[2023-05-14 15:00] VITALS: BP 167/71; PULSE 89; RESP 18; TEMP 36.7; O2SAT 99
--- NOTE | 2023-05-14 15:45 | HO.PM.IMPN ---
Subjective Subjective Date of Service: 05/14/23 Interval History: Denies foot pain due to neuropathy, tolerating diet denies nausea vomiting, no diarrhea, no fevers, no chills, no other acute issues overnight, no lightheadedness or dizziness Review of Systems All other system reviewed and negative. Physical Exam Vital Signs: Vital Signs: Last Vital Signs Temp 98.1 F 05/14/23 15:00 Pulse 89 05/14/23 15:00 Resp 18 05/14/23 15:00 BP 167/71 H 05/14/23 15:00 Pulse Ox 99 05/14/23 15:00 O2 Del Method Room Air 05/14/23 15:00 BMI result Body Mass Index 33.3 Const: Other: Gen: in no acute distress sclera anicteric, moist mucus membranes Neck: supple,no jvd. Lungs: clear to auscultation bilaterally Heart: regular rate and rhythm, no murmurs Abd: soft, non-tender, non-distended, bowel sounds audible. Ext: no edema Skin: warm/well-perfused, R foot with wound over ball of foot, extensive erythema over dorsum, see picture progress note . Neuro: alert and oriented x3, dense neuropathy of feet bilaterally Psych appropriate affect Objective Data Active Medications Acetaminophen (Acetaminophen 325 Mg Tablet) 650 mg PO Q6H PRN PRN Reason: Pain, Mild (Pain Scale 1-3) Allopurinol (Allopurinol 300 Mg Tablet) 300 mg PO Q5D [facility] Last Admin: 05/14/23 08:48 Dose: 300 mg Documented By: CHULA Aspirin (Aspirin 81 Mg Tab.Chew) 81 mg PO DAILY [facility] Last Admin: 05/14/23 08:28 Dose: 81 mg Documented By: CHULA Atorvastatin Calcium (Atorvastatin Calcium 80 Mg Tablet) 80 mg PO BEDTIME [facility] Last Admin: 05/13/23 20:40 Dose: 80 mg Documented By: LALITHA Benzonatate (Benzonatate 100 Mg Capsule) 100 mg PO TID PRN PRN Reason: Cough Cyanocobalamin (Cyanocobalamin (Vitamin B-12) 1,000 Mcg Tablet) 1,000 mcg PO DAILY [facility] Last Admin: 05/14/23 08:28 Dose: 1,000 mcg Documented By: CHULA Dextrose (Dextrose 50 % 25 Gm/50 Ml Syringe) 25 gm IVPUSH Q15M PRN; Protocol PRN Reason: per Hypoglycemia Standing Ord. Docusate Sodium (Docusate Sodium 100 Mg Capsule) 100 mg PO DAILY PRN PRN Reason: Constipation Enoxaparin Sodium (Enoxaparin Sodium 40 Mg/0.4 Ml Syringe) 40 mg SUBCUT Q24H [facility] Last Admin: 05/13/23 17:54 Dose: 40 mg Documented By: SUBHASH Ferrous Sulfate (Ferrous Sulfate 324 Mg Tablet.Dr) 324 mg PO DAILY [facility] Last Admin: 05/14/23 08:28 Dose: 324 mg Documented By: CHULA Gabapentin (Gabapentin 300 Mg Capsule) 300 mg PO TID [facility] Last Admin: 05/14/23 14:39 Dose: 300 mg Documented By: CHULA Glucose (Glucose Gel 15 Gm Gel..Gram.) 15 gm PO Q15M PRN; Protocol PRN Reason: per Hypoglycemia Standing Ord. Cefepime HCl 1 gm/ Sodium (Chloride) 50 mls @ 100 mls/hr IV Q12H [facility] Last Infusion: 05/14/23 11:37 Dose: Infused Documented By: CHULA Vancomycin HCl 1,500 mg/ (Sodium Chloride) 500 mls @ 333.333 mls/hr IV Q24H [facility] Last Infusion: 05/13/23 20:56 Dose: Infused Documented By: LALITHA Metronidazole (Flagyl) 500 mg in 100 mls @ 100 mls/hr IV Q8H [facility] Last Infusion: 05/14/23 10:23 Dose: Infused Documented By: CHULA Insulin Human Lispro (Insulin Lispro 100 Unit/Ml 3 Ml Vial) 0 unit SUBCUT QIDACHS [facility]; Protocol Last Admin: 05/14/23 11:40 Dose: 2 unit Documented By: CHULA Losartan Potassium (Losartan Potassium 25 Mg Tablet) 25 mg PO DAILY [facility]; Protocol Last Admin: 05/14/23 08:28 Dose: 25 mg Documented By: CHULA Multivitamins/Vitamin C (Multivitamin Tablet) 1 tab PO DAILY [facility] Last Admin: 05/14/23 08:28 Dose: 1 tab Documented By: CHULA Ondansetron HCl (Ondansetron Hcl 4 Mg/2 Ml Vial) 4 mg IVPUSH Q8H PRN PRN Reason: Nausea and Vomiting Pharmacy Consult (Consult Rx Vancomycin Dosing) 1 each MISCELLANE DAILY PRN PRN Reason: Consult order Propranolol HCl (Propranolol Hcl 10 Mg Tablet) 10 mg PO BID [facility]; Protocol Last Admin: 05/14/23 08:28 Dose: 10 mg Documented By: CHULA Silver Sulfadiazine (Silver Sulfadiazine 1 % Cream 20 Gm Tube) 1 appl TOPICAL Q2D [facility] Last Admin: 05/14/23 10:27 Dose: Not Given Documented By: CHULA Non-Admin Reason: wound nurse to change orders' Sodium Chloride (0.9 % Sodium Chloride Flush 3 Ml Syringe) 3 ml IVFLUSH QSHIFT [facility] Last Admin: 05/14/23 08:28 Dose: 3 ml Documented By: CHULA Trazodone HCl (Trazodone Hcl 100 Mg Tablet) 100 mg PO BEDTIME PRN PRN Reason: Insomnia Last Admin: 05/12/23 20:10 Dose: 100 mg Documented By: BLANQUITA Labs 05/13/23 05:15 05/14/23 05:10 Labs: Laboratory Results - last 24 hr 05/13/23 05/13/23 05/14/23 16:01 20:16 05:10 Hold Purple Top SEE NOTE Estim Creat Clear Calc 68.5 Estimated GFR 60 POC Glucose 131 H 210 H 05/14/23 05/14/23 07:18 11:00 Hold Purple Top Estim Creat Clear Calc Estimated GFR POC Glucose 190 H 162 H Microbiology Microbiology Results: Microbiology 05/12/23 00:20 Gram Stain - Final Foot - Right Side Routine Culture - Final Streptococcus viridans group 05/11/23 17:17 Blood Culture - Preliminary Blood - Venous No growth after 48 hours. 05/11/23 15:56 Blood Culture - Preliminary Blood - Venous No growth after 48 hours. 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 - BCx 2 neg x 48h, will order PICC ,likely 6 wk of IV ABX, will discuss choice of antibiotic with ID. PAD - peroneal stenosis on arterial Duplex, Dr. Baron recommends Angio later this week. BRITTNEY, resolved was likely pre renal resolved with IV fluid no anemia likely ACD + iron deficiency anemia continue iron , follow FOBT HTN - continue propranolol and losartan, few elevated blood pressure readings will follow. DM2 - blood sugar < 200 neuropathy - gabapentin VTE ppx - LMWH dispo - anticipate home with VNA In my clinical judgment, the patient requires continued inpatient hospitalization for the following reasons: IV ABX Time Spent With Patient Time: Total time managing care of this patient today ____ minutes. Quality Stroke Does the patient have a stroke diagnosis?: No VTE Prior VTE?: No VTE Risk Level:: Medical - moderate - high VTE Device Contraindication: Treatment Not Indicated VTE Drug Contraindication: N/A - Med Ordered
[2023-05-14 16:19] LABS: Glucose, Whole Blood 153 mg/dL (60-115)
[2023-05-14 17:06] LABS: Vancomycin Random 7.1 mcg/mL (15-20)
--- NOTE | 2023-05-14 17:12 | HE.PHANOTE ---
RE VANCO TROUGH WAS SUBTHERAPUETIC AT 7.1. RENAL FUNCTION IMPROVING FROM ADMISSION. WILL CHANGE DOSE TO 1250MG Q12H, VERY AGGRESSIVE AND PATIENT MAY DOSE DUMP. WILL GET A LEVEL AFTER TWO DOSES FOR SAFETY, BUT ALSO NEED TO GET THE PATIENT WITHIN AUC GOAL. SUSPECTED AUC ON THIS REGIMEN IS 581 WITH A TROUGH OF 18.5. CONSIDER LOWERING DOSE TO 1000MG Q12H AFTER THESE TWO DOSES MALU
[2023-05-14] MEDS: Enoxaparin Sodium 40 MG/0.4 ML SYRINGE SUBCUT (17:33)
[2023-05-14] MEDS: vancomycin HCL 1,250 MG in 0.9 % Sodium Chloride 250 ML 166.67 MG IV (18:38)
[2023-05-14 19:20] VITALS: BP 152/70; PULSE 67; RESP 16; TEMP 37.2; O2SAT 97
[2023-05-14 20:14] LABS: Glucose, Whole Blood 210 mg/dL (60-115)
[2023-05-14] MEDS: Atorvastatin Calcium 80 MG TABLET PO (20:55)
[2023-05-14] MEDS: Acetaminophen 325 MG TABLET 650 MG PO (22:34)
[2023-05-14] MEDS: traZODone HCL 100 MG TABLET PO (22:34)
[2023-05-15] MEDS: metroNIDAZOLE/NS 500 MG/100 ML PIGGYBACK 100 MG IV ×2 (01:11→09:42)
[2023-05-15 02:36] VITALS: BP 144/67; PULSE 57; RESP 16; TEMP 36.6; O2SAT 94
[2023-05-15] MEDS: vancomycin HCL 1,250 MG in 0.9 % Sodium Chloride 250 ML 166.67 MG IV (05:18)
[2023-05-15 06:07] LABS: Creatinine Clr Calc Pharmacy 75.5; Estimated Glomerular Filt Rate > 60
[2023-05-15 07:09] VITALS: BP 186/79; PULSE 63; RESP 18; TEMP 36.2; O2SAT 95
[2023-05-15 07:25] LABS: Glucose, Whole Blood 164 mg/dL (60-115)
--- NOTE | 2023-05-15 09:18 | HO.PICC ---
PICC Line Insertion NPICC Diagnosis: Osteomyelitis Indication: Alf ABT Pertinent Labs: Reviewed Technique: Following informed consent including risks, benefits and alternatives and using sterile technique including cap and mask, sterile gown, glove and drape, the right arm was prepped and draped in the usual sterile fashion of full barrier technique with CHG. Following completion of [place] Protocol the skin and soft tissues were anesthetized with 1% Lidocaine plain. Using ultrasound guidance, right basilic vein access was obtained. Over an 0.018 wire through peel-away sheath, a 4FR PowerPicc SOLO catheter PICC line was positioned. Catheter length is 39cm internal length, 0cm external length, for a total trimmed length of 39cm. The procedure was performed in [facility]. Tip verification was performed by Roxanna Naqvi with Elsi 3CG. Tip located in SVC. Ultrasound was used to document vein patency and for needle entry. A formal ultrasound picture and cardiac rhythm strip was recorded. Vascular [employer] Day Worker has released the line for use and it is currently dressed with a StatLock, Tegaderm, and CHG disc. Verification has been performed for blood return and line patency. Arm Circumference: 29cm Equipment: [place] PowerPICC SOLO Catheter Type: 4FR single lumen PASV PICC Lot #: [id number]
[2023-05-15 09:26] VITALS: BP 189/79; PULSE 60; RESP 16; O2SAT 98
[2023-05-15] MEDS: Propranolol HCL 10 MG TABLET PO ×2 (09:42→20:34)
[2023-05-15] MEDS: Ferrous Sulfate 324 MG TABLET.DR PO (09:42)
[2023-05-15] MEDS: Multivitamin TABLET 1 TAB PO (09:42)
[2023-05-15] MEDS: Aspirin 81 MG TAB.CHEW PO (09:42)
[2023-05-15] MEDS: Gabapentin 300 MG CAPSULE PO ×3 (09:42→20:34)
[2023-05-15] MEDS: Losartan Potassium 25 MG TABLET PO (09:42)
[2023-05-15] MEDS: Cyanocobalamin (Vitamin B-12) 1,000 MCG TABLET 1000 MCG PO (09:42)
[2023-05-15] MEDS: 0.9 % Sodium Chloride Flush 3 ML SYRINGE IVFLUSH ×3 (09:43→20:35)
[2023-05-15] MEDS: cefEPime HCl 1 GM in 0.9 % Sodium Chloride 50 ML IV (10:53)
[2023-05-15 10:59] VITALS: BP 153/67
[2023-05-15 11:05] LABS: Glucose, Whole Blood 253 mg/dL (60-115)
--- NOTE | 2023-05-15 11:48 | HO.VASCPN ---
Subjective Subjective Date of Service: 05/15/23 Patient reports: no new complaints and feels better Interval history: Pleasant 72-year-old gentleman with a history of diabetes presents for follow-up regarding nonhealing right great toe ulcer. He has had no interval issues. He has been on IV antibiotics. Now for routine vascular follow-up. Physical Exam Vital Signs: Vital Signs: Last Vital Signs Temp 97.1 F 05/15/23 07:09 Pulse 60 05/15/23 09:26 Resp 16 05/15/23 09:26 BP 153/67 H 05/15/23 10:59 Pulse Ox 98 05/15/23 09:26 O2 Del Method Room Air 05/15/23 09:26 BMI result Body Mass Index 33.3 Const: General: cooperative, healthy appearing and no acute distress Orientation/consciousness: oriented to person, oriented to place and oriented to time HEENT: Head: Yes normal to inspection Neck: Carotids: no bruits Chest: Chest palpation & inspection: normal inspection of the chest Resp: Effort & Inspection: normal respiratory effort and able to speak in complete sentences Auscultation: clear to auscultation bilaterally Cardio: Rate: regular rate Heart sounds: S1 normal heart sound present and S2 normal heart sound present GI: Inspection: Yes normal to inspection Skin: Other: Right great toe penetrating ulcer from lateral and plantar aspect. Penetrates to bone General skin exam: no rashes or lesions noted Wounds: no wounds Neuro: General: oriented to person, oriented to place, oriented to time and CN's II-XI intact bilaterally Extrem: General: Yes normal to inspection, Yes full ROM and Yes no clubbing, cyanosis or edema Psych: Appearance: grossly normal and well kempt Speech and movement: Normal speech and movement present Affect: normal affect Progress Note: A&P Assessment and plan (1) PAD (peripheral artery disease): Status: Acute Assessment and Plan: in short patient has nonhealing right great toe ulcer. Will plan for continued antibiotics. The concern here is this is a penetrating ulcer right down to bone. Most likely will need an amputation. Will plan for angiogram later this week. Thank you for allowing us to assist in his care. If there are any questions or concerns please do not hesitate to contact us Time Spent With Patient Time: Total time managing care of this patient today ____ minutes. Procedures Date of Service Date of Service: 05/15/23 Quality Stroke Does the patient have a stroke diagnosis?: No VTE Prior VTE?: No VTE Risk Level:: Medical - moderate - high VTE Device Contraindication: Treatment Not Indicated VTE Drug Contraindication: N/A - Med Ordered
[2023-05-15] MEDS: Insulin Lispro 100 UNIT/ML 3 ML VIAL SUBCUT ×2 (12:00→16:37)
--- NOTE | 2023-05-15 14:46 | P.PNIM_ITS ---
Subjective Subjective Date of Service: 05/15/23 Interval History: Being followed for right foot ulcer denies pain due to neuropathy complaining of back discomfort tolerating diet no nausea, no vomiting, no abdominal pain, no diarrhea, no lightheadedness or dizziness, no other acute issues overnight. Review of Systems All other system reviewed and negative, Physical Exam 2 Vital Signs: Vital Signs: Last Vital Signs Temp 97.1 F 05/15/23 07:09 Pulse 60 05/15/23 09:26 Resp 16 05/15/23 09:26 BP 153/67 H 05/15/23 10:59 Pulse Ox 98 05/15/23 09:26 O2 Del Method Room Air 05/15/23 09:26 BMI result Body Mass Index 33.3 Const: Other: Gen: awake alert x3, in no acute distress sclera anicteric, moist mucus membranes Neck: supple,no jvd. Lungs: clear to auscultation bilaterally Heart: regular rate and rhythm, no murmurs Abd: soft, non-tender, non-distended, bowel sounds audible. Ext: no edema Skin: warm/well-perfused, R foot with wound over ball of foot, extensive erythema over dorsum, see picture progress note . Neuro: alert and oriented x3, dense neuropathy of feet bilaterally Psych appropriate affect Objective Data Active Medications Acetaminophen (Acetaminophen 325 Mg Tablet) 650 mg PO Q6H PRN PRN Reason: Pain, Mild (Pain Scale 1-3) Last Admin: 05/14/23 22:34 Dose: 650 mg Documented By: LALITHA Allopurinol (Allopurinol 300 Mg Tablet) 300 mg PO Q5D [facility] Last Admin: 05/14/23 08:48 Dose: 300 mg Documented By: CHULA Aspirin (Aspirin 81 Mg Tab.Chew) 81 mg PO DAILY [facility] Last Admin: 05/15/23 09:42 Dose: 81 mg Documented By: CHULA Atorvastatin Calcium (Atorvastatin Calcium 80 Mg Tablet) 80 mg PO BEDTIME [facility] Last Admin: 05/14/23 20:55 Dose: 80 mg Documented By: LALITHA Benzonatate (Benzonatate 100 Mg Capsule) 100 mg PO TID PRN PRN Reason: Cough Cyanocobalamin (Cyanocobalamin (Vitamin B-12) 1,000 Mcg Tablet) 1,000 mcg PO DAILY [facility] Last Admin: 05/15/23 09:42 Dose: 1,000 mcg Documented By: CHULA Dextrose (Dextrose 50 % 25 Gm/50 Ml Syringe) 25 gm IVPUSH Q15M PRN; Protocol PRN Reason: per Hypoglycemia Standing Ord. Docusate Sodium (Docusate Sodium 100 Mg Capsule) 100 mg PO DAILY PRN PRN Reason: Constipation Enoxaparin Sodium (Enoxaparin Sodium 40 Mg/0.4 Ml Syringe) 40 mg SUBCUT Q24H [facility] Last Admin: 05/14/23 17:33 Dose: 40 mg Documented By: TRACIE Ferrous Sulfate (Ferrous Sulfate 324 Mg Tablet.Dr) 324 mg PO DAILY [facility] Last Admin: 05/15/23 09:42 Dose: 324 mg Documented By: CHULA Gabapentin (Gabapentin 300 Mg Capsule) 300 mg PO TID [facility] Last Admin: 05/15/23 14:43 Dose: 300 mg Documented By: CHULA Glucose (Glucose Gel 15 Gm Gel..Gram.) 15 gm PO Q15M PRN; Protocol PRN Reason: per Hypoglycemia Standing Ord. Cefepime HCl 1 gm/ Sodium (Chloride) 50 mls @ 100 mls/hr IV Q12H [facility] Last Infusion: 05/15/23 11:27 Dose: Infused Documented By: CHULA Metronidazole (Flagyl) 500 mg in 100 mls @ 100 mls/hr IV Q8H [facility] Last Infusion: 05/15/23 10:47 Dose: Infused Documented By: CHULA Vancomycin HCl 1,250 mg/ (Sodium Chloride) 250 mls @ 166.667 mls/hr IV Q12H [facility] Last Infusion: 05/15/23 07:09 Dose: Infused Documented By: CHULA Insulin Human Lispro (Insulin Lispro 100 Unit/Ml 3 Ml Vial) 0 unit SUBCUT QIDACHS [facility]; Protocol Last Admin: 05/15/23 12:00 Dose: 6 unit Documented By: CHULA Losartan Potassium (Losartan Potassium 25 Mg Tablet) 25 mg PO DAILY [facility]; Protocol Last Admin: 05/15/23 09:42 Dose: 25 mg Documented By: CHULA Multivitamins/Vitamin C (Multivitamin Tablet) 1 tab PO DAILY [facility] Last Admin: 05/15/23 09:42 Dose: 1 tab Documented By: CHULA Ondansetron HCl (Ondansetron Hcl 4 Mg/2 Ml Vial) 4 mg IVPUSH Q8H PRN PRN Reason: Nausea and Vomiting Pharmacy Consult (Consult Rx Vancomycin Dosing) 1 each MISCELLANE DAILY PRN PRN Reason: Consult order Propranolol HCl (Propranolol Hcl 10 Mg Tablet) 10 mg PO BID [facility]; Protocol Last Admin: 05/15/23 09:42 Dose: 10 mg Documented By: CHULA Silver Sulfadiazine (Silver Sulfadiazine 1 % Cream 20 Gm Tube) 1 appl TOPICAL Q2D [facility] Last Admin: 05/14/23 10:27 Dose: Not Given Documented By: CHULA Non-Admin Reason: wound nurse to change orders' Sodium Chloride (0.9 % Sodium Chloride Flush 3 Ml Syringe) 3 ml IVFLUSH QSHIFT [facility] Last Admin: 05/15/23 09:43 Dose: 3 ml Documented By: CHULA Trazodone HCl (Trazodone Hcl 100 Mg Tablet) 100 mg PO BEDTIME PRN PRN Reason: Insomnia Last Admin: 05/14/23 22:34 Dose: 100 mg Documented By: LALITHA Labs 05/13/23 05:15 05/15/23 05:05 Labs: Laboratory Results - last 24 hr 05/14/23 05/14/23 05/14/23 16:14 16:32 20:10 Hold Purple Top Estim Creat Clear Calc Estimated GFR POC Glucose 153 H 210 H Random Vancomycin 7.1 L 05/15/23 05/15/23 05/15/23 05:05 07:12 11:02 Hold Purple Top SEE NOTE Estim Creat Clear Calc 75.5 Estimated GFR > 60 POC Glucose 164 H 253 H Random Vancomycin Assessment and Plan (1) Osteomyelitis: Status: Acute Plan 72yo M with DM2 + neuropathy, HTN, HLD presenting after developing a R foot blister 2 wk ago after hiking through [place] then 1 wk ago developed redness around blister and purulent discharge. entry level management started him on [id number] + levofloxacin 2 wk prior to admission presenting with worsening redness + discharge; found to have osteomyelitis Acute DM foot ulcer with osteomyelitis No fevers no chills, no pain due to neuropathy on- vanco + cefepime 05/11-, metronidaozle 05/13- case discussed with ID she recommends to discontinue current antibiotics in place patient on IV meropenem and discharge patient on IV ertapenem MRI foot suspicious for 1st metatarsal proximal phalanx osteomyelitis, small 1st MTP joint effusion with mild synovitis question reactive changes versus septic arthritis - BCx 2 neg x 48h, PICC line ordered,likely 6 wk of IV ABX. Will schedule Tylenol for back pain PAD- peroneal stenosis on arterial Duplex, Dr. Baron recommends Angio later this week. BRITTNEY, resolved was likely pre renal resolved with IV fluid anemia likely ACD + iron deficiency anemia continue iron , follow FOBT HTN - continue propranolol and losartan, few elevated blood pressure readings will follow. DM2 - blood sugar elevated will adjust insulin sliding scale at home patient on metformin currently on hold. neuropathy - gabapentin VTE ppx - LMWH dispo - anticipate home with VNA In my clinical judgment, the patient requires continued inpatient hospitalization for the following reasons: IV ABX Time Spent With Patient Time: Total time managing care of this patient today ____ minutes. Quality Stroke Does the patient have a stroke diagnosis?: No VTE Prior VTE?: No VTE Risk Level:: Medical - moderate - high VTE Device Contraindication: Treatment Not Indicated VTE Drug Contraindication: N/A - Med Ordered
[2023-05-15 15:21] VITALS: BP 153/71; PULSE 58; RESP 17; TEMP 36.7; O2SAT 95
[2023-05-15 16:14] LABS: Glucose, Whole Blood 204 mg/dL (60-115)
[2023-05-15] MEDS: Acetaminophen 325 MG TABLET 650 MG PO ×2 (16:35→20:33)
[2023-05-15 19:24] VITALS: BP 149/73; PULSE 68; RESP 18; TEMP 36.6; O2SAT 98
[2023-05-15 20:09] LABS: Glucose, Whole Blood 136 mg/dL (60-115)
[2023-05-15] MEDS: Enoxaparin Sodium 40 MG/0.4 ML SYRINGE SUBCUT (20:33)
[2023-05-15] MEDS: traZODone HCL 100 MG TABLET PO (20:34)
[2023-05-15] MEDS: Atorvastatin Calcium 80 MG TABLET PO (20:34)
[2023-05-16 04:00] VITALS: BP 163/72; PULSE 56; RESP 16; TEMP 37.1; O2SAT 97
[2023-05-16 07:38] VITALS: BP 178/84; PULSE 64; RESP 18; TEMP 36.1; O2SAT 96
[2023-05-16 07:50] LABS: Glucose, Whole Blood 164 mg/dL (60-115)
[2023-05-16] MEDS: Gabapentin 300 MG CAPSULE PO ×3 (08:23→20:34)
[2023-05-16] MEDS: Insulin Lispro 100 UNIT/ML 3 ML VIAL SUBCUT ×4 (08:23→20:34)
[2023-05-16] MEDS: Ferrous Sulfate 324 MG TABLET.DR PO (08:23)
[2023-05-16] MEDS: Acetaminophen 325 MG TABLET 650 MG PO ×2 (08:24→20:34)
[2023-05-16] MEDS: Aspirin 81 MG TAB.CHEW PO (08:24)
[2023-05-16] MEDS: Multivitamin TABLET 1 TAB PO (08:24)
[2023-05-16] MEDS: Losartan Potassium 25 MG TABLET PO (08:24)
[2023-05-16] MEDS: Propranolol HCL 10 MG TABLET PO ×2 (08:24→20:34)
[2023-05-16] MEDS: Cyanocobalamin (Vitamin B-12) 1,000 MCG TABLET 1000 MCG PO (08:24)
[2023-05-16] MEDS: 0.9 % Sodium Chloride Flush 3 ML SYRINGE IVFLUSH ×3 (08:25→20:35)
[2023-05-16 11:25] LABS: Glucose, Whole Blood 185 mg/dL (60-115)
--- NOTE | 2023-05-16 12:28 | HO.VASCPN ---
Subjective Subjective Date of Service: 05/16/23 Patient reports: no new complaints and feels better Interval history: Patient seen and examined. No significant events overnight. Appears to be doing significantly better. Still has this nonhealing right toe. Has obtain a PICC line. He is obtaining IV antibiotic therapy. Now for vascular follow-up. Physical Exam Vital Signs: Vital Signs: Last Vital Signs Temp 96.9 F 05/16/23 07:38 Pulse 64 05/16/23 07:38 Resp 18 05/16/23 07:38 BP 178/84 H 05/16/23 07:38 Pulse Ox 96 05/16/23 07:38 O2 Del Method Room Air 05/16/23 07:38 BMI result Body Mass Index 33.3 Const: General: cooperative, healthy appearing and comfortable Orientation/consciousness: oriented to person, oriented to place and oriented to time HEENT: Head: Yes normal to inspection Neck: Neck: Yes normal visual inspection Carotids: no bruits Chest: Chest palpation & inspection: normal inspection of the chest Resp: Effort & Inspection: normal respiratory effort and able to speak in complete sentences Auscultation: clear to auscultation bilaterally, no crackles, no rales, no rhonchi and no wheezes Cardio: Rate: regular rate Rhythm: regular rhythm Heart sounds: S1 normal heart sound present and S2 normal heart sound present Bruits: no carotid bruits Peripheral pulses: Peripheral pulses 2+ throughout GI: Inspection: Yes normal to inspection Skin: Other: Right great toe ulcer medial and plantar aspect of toe Wounds: no wounds Hair: normal Neuro: General: oriented to person, oriented to place and oriented to time Cranial nerves: Yes CN's II-XII intact bilaterally and Yes Normal hearing present Cognition (Neuro): normal cognition Motor exam (neuro): 5/5 motor strength present throughout Extrem: Other: venous exam: No significant superficial varicosities or spider telangiectasias, minimal edema General: No clubbing, No cyanosis and No edema Psych: Appearance: grossly normal Mental Status: mental status grossly normal Speech and movement: Normal speech and movement present Progress Note: A&P Assessment and plan (1) PAD (peripheral artery disease): Status: Acute Assessment and Plan: Patient notes leg pain when walking distances. I have discussed the pathophysiology of peripheral vascular disease with the patient. I have also discussed risk factor modification. I have reviewed the patient's arterial testing which reveals right SFA disease. the patient would benefit from a right leg endovascular peripheral angiogram with possible angioplasty, stent, and/or atherectomy. This has been discussed in detail with the patient along with risks, benefits, and complications. This includes but is not limited to bleeding, infection, heart attack, need for emergent surgical repair, limb ischemia, blood vessel damage, bleeding, puncture, kidney injury, bruising, allergic reaction, and skin reaction. The patient demonstrates a clear understanding. We will schedule for the next appropriate time. Thank you for allowing us to assist in this patient's care. Time Spent With Patient Time: Total time managing care of this patient today ____ minutes. Procedures Date of Service Date of Service: 05/16/23 Quality Stroke Does the patient have a stroke diagnosis?: No VTE Prior VTE?: No VTE Risk Level:: Medical - moderate - high VTE Device Contraindication: Treatment Not Indicated VTE Drug Contraindication: N/A - Med Ordered
[2023-05-16 13:53] VITALS: BP 114/58; PULSE 68; RESP 18; O2SAT 97
--- NOTE | 2023-05-16 14:12 | HO.PM.IMPN ---
Subjective Subjective Date of Service: 05/16/23 Interval History: Slept good, requesting Tylenol and trazodone at nighttime for back pain and insomnia denies foot pain due to neuropathy, denies fever, no chills, tolerating diet with no nausea no vomiting no abdominal pain. Review of Systems All other system reviewed and negative. Physical Exam Vital Signs: Vital Signs: Last Vital Signs Temp 96.9 F 05/16/23 07:38 Pulse 68 05/16/23 13:53 Resp 18 05/16/23 13:53 BP 114/58 L 05/16/23 13:53 Pulse Ox 97 05/16/23 13:53 O2 Del Method Room Air 05/16/23 13:53 BMI result Body Mass Index 33.3 Const: Other: Gen: awake alert x3, in no acute distress sclera anicteric, moist mucus membranes Neck: supple,no jvd. Lungs: clear to auscultation bilaterally Heart: regular rate and rhythm, no murmurs Abd: soft, non-tender, non-distended, bowel sounds audible. Ext: no edema Skin: warm/well-perfused, R foot with wound over ball of foot, extensive erythema over dorsum, see picture progress note . Neuro: alert and oriented x3, neuropathy of feet bilaterally Psych appropriate affect Objective Data Active Medications Acetaminophen (Acetaminophen 325 Mg Tablet) 650 mg PO Q6H PRN PRN Reason: Pain, Mild (Pain Scale 1-3) Last Admin: 05/15/23 16:35 Dose: 650 mg Documented By: SHEN Acetaminophen (Acetaminophen 325 Mg Tablet) 650 mg PO BID [facility] Last Admin: 05/16/23 08:24 Dose: 650 mg Documented By: CHULA Allopurinol (Allopurinol 300 Mg Tablet) 300 mg PO Q5D [facility] Last Admin: 05/14/23 08:48 Dose: 300 mg Documented By: CHULA Aspirin (Aspirin 81 Mg Tab.Chew) 81 mg PO DAILY [facility] Last Admin: 05/16/23 08:24 Dose: 81 mg Documented By: CHULA Atorvastatin Calcium (Atorvastatin Calcium 80 Mg Tablet) 80 mg PO BEDTIME [facility] Last Admin: 05/15/23 20:34 Dose: 80 mg Documented By: RAGHAV Benzonatate (Benzonatate 100 Mg Capsule) 100 mg PO TID PRN PRN Reason: Cough Cyanocobalamin (Cyanocobalamin (Vitamin B-12) 1,000 Mcg Tablet) 1,000 mcg PO DAILY [facility] Last Admin: 05/16/23 08:24 Dose: 1,000 mcg Documented By: CHULA Dextrose (Dextrose 50 % 25 Gm/50 Ml Syringe) 25 gm IVPUSH Q15M PRN; Protocol PRN Reason: per Hypoglycemia Standing Ord. Docusate Sodium (Docusate Sodium 100 Mg Capsule) 100 mg PO DAILY PRN PRN Reason: Constipation Enoxaparin Sodium (Enoxaparin Sodium 40 Mg/0.4 Ml Syringe) 40 mg SUBCUT Q24H [facility] Last Admin: 05/15/23 20:33 Dose: 40 mg Documented By: RAGHAV Ferrous Sulfate (Ferrous Sulfate 324 Mg Tablet.Dr) 324 mg PO DAILY [facility] Last Admin: 05/16/23 08:23 Dose: 324 mg Documented By: CHULA Gabapentin (Gabapentin 300 Mg Capsule) 300 mg PO TID [facility] Last Admin: 05/16/23 08:23 Dose: 300 mg Documented By: CHULA Glucose (Glucose Gel 15 Gm Gel..Gram.) 15 gm PO Q15M PRN; Protocol PRN Reason: per Hypoglycemia Standing Ord. Meropenem 1 gm/ Sodium (Chloride) 100 mls @ 200 mls/hr IV Q8H [facility] Last Infusion: 05/16/23 08:25 Dose: Infused Documented By: CHULA Sodium Chloride (Ns) 1,000 mls @ 100 mls/hr IVCONT .Q10H [facility] Insulin Human Lispro (Insulin Lispro 100 Unit/Ml 3 Ml Vial) 0 unit SUBCUT QIDACHS [facility]; Protocol Last Admin: 05/16/23 11:36 Dose: 2 unit Documented By: CHULA Losartan Potassium (Losartan Potassium 25 Mg Tablet) 25 mg PO DAILY [facility]; Protocol Last Admin: 05/16/23 08:24 Dose: 25 mg Documented By: CHULA Multivitamins/Vitamin C (Multivitamin Tablet) 1 tab PO DAILY [facility] Last Admin: 05/16/23 08:24 Dose: 1 tab Documented By: CHULA Ondansetron HCl (Ondansetron Hcl 4 Mg/2 Ml Vial) 4 mg IVPUSH Q8H PRN PRN Reason: Nausea and Vomiting Propranolol HCl (Propranolol Hcl 10 Mg Tablet) 10 mg PO BID [facility]; Protocol Last Admin: 05/16/23 08:24 Dose: 10 mg Documented By: CHULA Silver Sulfadiazine (Silver Sulfadiazine 1 % Cream 20 Gm Tube) 1 appl TOPICAL Q2D [facility] Last Admin: 05/16/23 09:13 Dose: Not Given Documented By: CHULA Non-Admin Reason: wound nurse recommends different treatment Sodium Chloride (0.9 % Sodium Chloride Flush 3 Ml Syringe) 3 ml IVFLUSH QSHIFT [facility] Last Admin: 05/16/23 08:25 Dose: 3 ml Documented By: CHULA Trazodone HCl (Trazodone Hcl 100 Mg Tablet) 100 mg PO BEDTIME PRN PRN Reason: Insomnia Last Admin: 05/15/23 20:34 Dose: 100 mg Documented By: RAGHAV Labs 05/13/23 05:15 05/15/23 05:05 Labs: Laboratory Results - last 24 hr 05/15/23 05/15/23 05/16/23 16:10 20:05 07:24 POC Glucose 204 H 136 H 164 H 05/16/23 11:18 POC Glucose 185 H Assessment and Plan (1) Osteomyelitis: Status: Acute Plan 72yo M with DM2 + neuropathy, HTN, HLD presenting after developing a R foot blister 2 wk ago after hiking through [place] then 1 wk ago developed redness around blister and purulent discharge. 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 No fevers no chills, no pain due to neuropathy s/p iv vanco + cefepime 05/11-05/15, metronidaozle 05/13-05/15 ID recommended IV meropenem started 05/15 and discharge patient on IV ertapenem MRI foot suspicious for 1st metatarsal proximal phalanx osteomyelitis, small 1st MTP joint effusion with mild synovitis question reactive changes versus septic arthritis - BCx 2 neg x 48h, PICC line placed,likely 6 wk of IV ABX. Continue schedule Tylenol for back pain PAD- peroneal stenosis on arterial Duplex, Dr. Baron recommends Angiogram scheduled for tomorrow will keep patient NPO after midnight BRITTNEY, resolved was likely pre renal resolved with IV fluid anemia likely ACD + iron deficiency anemia continue iron , follow FOBT HTN - continue propranolol and losartan, follow BP DM2 - blood sugar elevated will adjust insulin sliding scale, at home patient on metformin currently on hold. neuropathy - gabapentin VTE ppx - LMWH dispo - anticipate home with VNA In my clinical judgment, the patient requires continued inpatient hospitalization for the following reasons: IV ABX Quality Stroke Does the patient have a stroke diagnosis?: No VTE Prior VTE?: No VTE Risk Level:: Medical - moderate - high VTE Device Contraindication: Treatment Not Indicated VTE Drug Contraindication: N/A - Med Ordered
--- NOTE | 2023-05-16 14:20 | P.CDIM_ITS ---
PROVIDER RESPONSE TEXT: To clarify, the appropriate diagnosis supported by the clinical indicators: Other (explain): Right great toe penetrating ulcer penetrate to bone with no necrosis QUERY TEXT: PHYSICIAN'S DOCUMENTATION REQUEST Date of Query: 05/15/2023 09:25 AM EDT Patient Name: Julio Turk Admit Date: 05/11/2023 Dear Pooja Mo, A review of the medical record indicates additional documentation may be needed. Please review below and update the documentation accordingly. Clinical Indicators: per wound note 05/14/23: Right Plantar Foot Etiology: Diabetic Wound Measurements: 1.2cm x 1.8cm x 1.5cm with undermining from 12-2 o'clock max depth of 2cm connecting to blister at 1st MTP Joint Treatment: Right Plantar - Off Load Pressure , Elevate Right Leg - Cleanse and irrigate with saline, pat dry. Apply skin prep to the saul wound, lightly pack wound bed with Plain packing strip be sure to leave a wick for easy r emoval, cover with dry gauze, ABD Pad and gauze wrap. Change Daily. IV antibiotic therapy MRI pending Based on the above, could you please provide further information regarding the depth ulcer/wound: skin breakdown only exposed fat layer (subcutaneous tissue) muscle involvement without evidence of necrosis muscle necrosis bone involvement without evidence necrosis bone necrosis Other (explain)Clinically unable to determine (explain)Thank you, Emily Guardado RN Use of terms such as suspected, likely, concern for, or probable (associated with a specific diagnosi s that is being evaluated, monitored, or treated as if it exists) are acceptable and can be coded in the inpatient se tting, when documented at the time of discharge. Please use your independent medical judgment in providing your response. THIS QUERY IS PART OF THE PERMANENT MEDICAL RECORD
--- NOTE | 2023-05-16 15:26 | HO.WOUND ---
Wound Consult: Follow up @1500 Per patient and direct care nurse dressing change was completed approximately an hour ago - no concerns noted. Wound not assessed today. Pt chart review and pt understanding angio scheduled for tomorrow or Sunday this week. Per Pt request outpt wound clinic was notified of patients inpatient status since he had an appointment scheduled for wound care 05/17/23. Will follow up at the end of the week.
--- NOTE | 2023-05-16 15:49 | MHC.CM.PN ---
Per rounds no discharge today, Angio scheduled. DP Home self care and self transport.
[2023-05-16 16:07] LABS: Glucose, Whole Blood 219 mg/dL (60-115)
[2023-05-16] MEDS: Enoxaparin Sodium 40 MG/0.4 ML SYRINGE SUBCUT (18:16)
[2023-05-16 19:51] LABS: Glucose, Whole Blood 200 mg/dL (60-115)
[2023-05-16 20:29] VITALS: BP 164/72; PULSE 72; RESP 18; TEMP 36.4; O2SAT 99
[2023-05-16] MEDS: traZODone HCL 100 MG TABLET PO (20:34)
[2023-05-16] MEDS: Atorvastatin Calcium 80 MG TABLET PO (20:34)
--- NOTE | 2023-05-16 23:32 | PC.NURSE ---
Assumed care 19:00. Discussed NPO at midnight with patient who verbalizes understanding. Handoff report given 23:00.
[2023-05-17] VITALS (13 sets, daily range): BP systolic 144–165; BP diastolic 59–79; PULSE 51–67; RESP 14–20; TEMP 36.5–37; O2SAT 95–100
[2023-05-17 07:30] LABS: Glucose, Whole Blood 204 mg/dL (60-115)
[2023-05-17] MEDS: Ferrous Sulfate 324 MG TABLET.DR PO (08:25)
[2023-05-17] MEDS: Gabapentin 300 MG CAPSULE PO ×3 (08:25→19:59)
[2023-05-17] MEDS: Losartan Potassium 25 MG TABLET PO (08:25)
[2023-05-17] MEDS: Cyanocobalamin (Vitamin B-12) 1,000 MCG TABLET 1000 MCG PO (08:25)
[2023-05-17] MEDS: Propranolol HCL 10 MG TABLET PO ×2 (08:25→19:59)
[2023-05-17] MEDS: Acetaminophen 325 MG TABLET 650 MG PO ×2 (08:26→19:57)
[2023-05-17] MEDS: Multivitamin TABLET 1 TAB PO (08:26)
[2023-05-17] MEDS: 0.9 % Sodium Chloride 1,000 ML 100 ML IVCONT ×2 (08:46→19:57)
[2023-05-17] MEDS: 0.9 % Sodium Chloride Flush 3 ML SYRINGE IVFLUSH ×2 (08:47→15:44)
--- NOTE | 2023-05-17 12:28 | P.PNIM_ITS ---
Subjective Subjective Date of Service: 05/17/23 Interval History: NPO for right leg angio, offers no acute complaints, slept well, no fevers, no chills, blood sugars in 200, no acute issues overnight. Review of Systems All other system reviewed and negative Physical Exam 2 Vital Signs: Vital Signs: Last Vital Signs Temp 98.6 F 05/17/23 03:49 Pulse 59 05/17/23 07:23 Resp 18 05/17/23 07:23 BP 144/70 H 05/17/23 07:23 Pulse Ox 95 05/17/23 07:23 O2 Del Method Room Air 05/17/23 07:23 BMI result Body Mass Index 33.3 Const: Other: Gen: awake alert x3, in no acute distress sclera anicteric, moist mucus membranes Neck: supple,no jvd. Lungs: clear to auscultation bilaterally Heart: regular rate and rhythm, no murmurs Abd: soft, non-tender, non-distended, bowel sounds audible. Ext: no edema Skin: warm/well-perfused, R foot with wound over ball of foot, extensive erythema over dorsum, see picture progress note . Neuro: alert and oriented x3, neuropathy of feet bilaterally Psych appropriate affect Objective Data Active Medications Acetaminophen (Acetaminophen 325 Mg Tablet) 650 mg PO Q6H PRN PRN Reason: Pain, Mild (Pain Scale 1-3) Last Admin: 05/15/23 16:35 Dose: 650 mg Documented By: SHEN Acetaminophen (Acetaminophen 325 Mg Tablet) 650 mg PO BID [facility] Last Admin: 05/17/23 08:26 Dose: 650 mg Documented By: JU Allopurinol (Allopurinol 300 Mg Tablet) 300 mg PO Q5D [facility] Last Admin: 05/14/23 08:48 Dose: 300 mg Documented By: CHULA Aspirin (Aspirin 81 Mg Tab.Chew) 81 mg PO DAILY [facility] Last Admin: 05/17/23 08:47 Dose: Not Given Documented By: JU Non-Admin Reason: procedure Atorvastatin Calcium (Atorvastatin Calcium 80 Mg Tablet) 80 mg PO BEDTIME [facility] Last Admin: 05/16/23 20:34 Dose: 80 mg Documented By: RAGHAV Benzonatate (Benzonatate 100 Mg Capsule) 100 mg PO TID PRN PRN Reason: Cough Cyanocobalamin (Cyanocobalamin (Vitamin B-12) 1,000 Mcg Tablet) 1,000 mcg PO DAILY [facility] Last Admin: 05/17/23 08:25 Dose: 1,000 mcg Documented By: JU Dextrose (Dextrose 50 % 25 Gm/50 Ml Syringe) 25 gm IVPUSH Q15M PRN; Protocol PRN Reason: per Hypoglycemia Standing Ord. Docusate Sodium (Docusate Sodium 100 Mg Capsule) 100 mg PO DAILY PRN PRN Reason: Constipation Enoxaparin Sodium (Enoxaparin Sodium 40 Mg/0.4 Ml Syringe) 40 mg SUBCUT Q24H [facility] Last Admin: 05/16/23 18:16 Dose: 40 mg Documented By: SAMM Ferrous Sulfate (Ferrous Sulfate 324 Mg Tablet.Dr) 324 mg PO DAILY [facility] Last Admin: 05/17/23 08:25 Dose: 324 mg Documented By: JU Gabapentin (Gabapentin 300 Mg Capsule) 300 mg PO TID [facility] Last Admin: 05/17/23 08:25 Dose: 300 mg Documented By: JU Glucose (Glucose Gel 15 Gm Gel..Gram.) 15 gm PO Q15M PRN; Protocol PRN Reason: per Hypoglycemia Standing Ord. Meropenem 1 gm/ Sodium (Chloride) 100 mls @ 200 mls/hr IV Q8H [facility] Last Infusion: 05/17/23 07:10 Dose: Infused Documented By: JU Sodium Chloride (Ns) 1,000 mls @ 100 mls/hr IVCONT .Q10H [facility] Last Admin: 05/17/23 08:46 Dose: 100 mls/hr Documented By: JU Insulin Human Lispro (Insulin Lispro 100 Unit/Ml 3 Ml Vial) 0 unit SUBCUT QIDACHS [facility]; Protocol Last Admin: 05/17/23 08:45 Dose: Not Given Documented By: JU Non-Admin Reason: NPO Losartan Potassium (Losartan Potassium 25 Mg Tablet) 25 mg PO DAILY [facility]; Protocol Last Admin: 05/17/23 08:25 Dose: 25 mg Documented By: JU Multivitamins/Vitamin C (Multivitamin Tablet) 1 tab PO DAILY [facility] Last Admin: 05/17/23 08:26 Dose: 1 tab Documented By: JU Ondansetron HCl (Ondansetron Hcl 4 Mg/2 Ml Vial) 4 mg IVPUSH Q8H PRN PRN Reason: Nausea and Vomiting Propranolol HCl (Propranolol Hcl 10 Mg Tablet) 10 mg PO BID [facility]; Protocol Last Admin: 05/17/23 08:25 Dose: 10 mg Documented By: JU Silver Sulfadiazine (Silver Sulfadiazine 1 % Cream 20 Gm Tube) 1 appl TOPICAL Q2D [facility] Last Admin: 05/16/23 09:13 Dose: Not Given Documented By: CHULA Non-Admin Reason: wound nurse recommends different treatment Sodium Chloride (0.9 % Sodium Chloride Flush 3 Ml Syringe) 3 ml IVFLUSH QSHIFT [facility] Last Admin: 05/17/23 08:47 Dose: 3 ml Documented By: JU Trazodone HCl (Trazodone Hcl 100 Mg Tablet) 100 mg PO BEDTIME PRN PRN Reason: Insomnia Last Admin: 05/16/23 20:34 Dose: 100 mg Documented By: RAGHAV Labs 05/13/23 05:15 05/15/23 05:05 Labs: Laboratory Results - last 24 hr 05/16/23 05/16/23 05/17/23 16:00 19:44 07:24 POC Glucose 219 H 200 H 204 H Microbiology Microbiology Results: Microbiology 05/11/23 17:17 Blood Culture - Final Blood - Venous No growth after 5 days. 05/11/23 15:56 Blood Culture - Final Blood - Venous No growth after 5 days. Assessment and Plan (1) Osteomyelitis: Status: Acute Plan 72yo M with DM2 + neuropathy, HTN, HLD presenting after developing a R foot blister 2 wk ago after hiking through [place] then 1 wk ago developed redness around blister and purulent discharge. 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 No fevers no chills, no pain due to neuropathy s/p iv vanco + cefepime 05/11-05/15, metronidaozle 05/13-05/15 ID recommended IV meropenem started 05/15 and rec discharge on IV ertapenem MRI foot suspicious for 1st metatarsal proximal phalanx osteomyelitis, small 1st MTP joint effusion with mild synovitis question reactive changes versus septic arthritis - BCx 2 neg x 48h, PICC line placed,likely 6 wk of IV ABX. Plan of care dependent on right leg angio scheduled for today by Dr. Baron Continue schedule Tylenol for back pain. PAD- peroneal stenosis on arterial Duplex, Dr. Baron recommends Angiogram scheduled for today. BRITTNEY, was likely pre renal resolved with IV fluid anemia likely ACD + iron deficiency anemia continue iron , FOBT uncollected, follow CBC. HTN - continue propranolol and losartan, high and low blood pressure readings, as per patient stable blood pressures at home on current meds, follow BP DM2 - blood sugar elevated, adjusted insulin sliding scale, at home patient on metformin currently on hold due to angiogram. neuropathy - gabapentin VTE ppx - LMWH dispo - anticipate home with VNA In my clinical judgment, the patient requires continued inpatient hospitalization for the following reasons: IV ABX,vascular surgery work up Quality Stroke Does the patient have a stroke diagnosis?: No VTE Prior VTE?: No VTE Risk Level:: Medical - moderate - high VTE Device Contraindication: Treatment Not Indicated VTE Drug Contraindication: N/A - Med Ordered
--- NOTE | 2023-05-17 12:49 | P.OP_ITS ---
Operative Note Operative Note Date of Service: 05/17/23 Narrative: Angiogram report from [facility] Preoperative diagnosis: Atherosclerosis of Right lower extremity with nonhealing ulcer Postoperative diagnosis: Same Procedure: 1. Ultrasound-guided left common femoral access 2. Aortogram with right lower extremity runoff Surgeon:Joe Baron M.D., FACS, RPVI Kosher Inspector:None Anesthesia: Local with moderate conscious sedation. Total intraservice moderate sedation time was 27 minutes. I monitored the patient's level of consciousness and physiologic status continuously throughout the procedure. Specimens:none Drains:none Estimated blood loss: Less than 10 ml Implant: none Indications: 72-year-old gentleman with a prior history of nonhealing right great toe ulcer. On noninvasive testing there is concern of arterial disease. Now presents for endovascular intervention. The patient has signed the informed consent after reviewing risks, complications, benefits, and alternatives previously discussed with the patient. The patient was given the opportunity to ask any additional questions or voice any concerns. All questions were answered to the patient's satisfaction. Procedure in detail: Patient was brought to the angiography suite prior to which a time-out was called for patient identification and site verification. Bilateral groins were prepped and draped in the standard surgical fashion. Under ultrasound guidance Left common femoral was punctured with micro puncture needle and wire. Subsequently a precision 4 Pakistani sheath was then placed. Bentson wire was advanced to the level of the aorta. 4 Pakistani Flush catheter was brought up and parked at the level of the renal arteries. Aortogram was then undertaken. Catheter was brought down to the level of the iliac bifurcation. Iliacs were subsequently imaged. Catheter was then brought in up and over to the right side SFA. Runoff study was then undertaken. no intervention was indicated. Catheter wire sheath were removed. 10 minutes direct pressure was held Interpretation of films: 1. Ultrasound demonstrates appropriate femoral puncture. Image of which was saved. 2. Aortogram demonstrates appropriate caliber aorta. Minimal disease. Appropriate take-off of the renals. 3. Iliac images demonstrate no significant disease 4. right Leg Common femoral artery: no significant disease Profundus Femoris: No significant disease Superficial femoral artery: patent with no significant disease Popliteal artery (p1,p2,p3): Anterior tibial artery: no significant disease Peroneal artery: no significant disease but diminutive Posterior tibial artery: no significant disease Dorsalis pedis/plantar arch: incomplete but does supply the great toe Conclusion: 1. successful diagnostic angiogram 2. Anticoagulation status: no change This note is constructed using voice recognition software. While every effort has been made to ensure accuracy, criminal intelligence analyst errors may have been included. Thank you for allowing me to participate in the care of your patient. Yours sincerely, Joe Baron MD, FACS, R.P.V.I.
[2023-05-17 17:04] LABS: Glucose, Whole Blood 172 mg/dL (60-115)
[2023-05-17] MEDS: Insulin Lispro 100 UNIT/ML 3 ML VIAL SUBCUT ×2 (17:08→20:20)
[2023-05-17] MEDS: Enoxaparin Sodium 40 MG/0.4 ML SYRINGE SUBCUT (17:08)
[2023-05-17] MEDS: Atorvastatin Calcium 80 MG TABLET PO (19:59)
[2023-05-17 20:07] LABS: Glucose, Whole Blood 219 mg/dL (60-115)
[2023-05-17] MEDS: traZODone HCL 100 MG TABLET PO (20:20)
--- NOTE | 2023-05-17 20:27 | PC.NURSE ---
took over care of this patient at 2000 from RUBÉN Schafer
[2023-05-18 03:34] VITALS: BP 138/67; PULSE 63; RESP 18; TEMP 36.5; O2SAT 97
[2023-05-18] MEDS: 0.9 % Sodium Chloride 1,000 ML 100 ML IVCONT (06:12)
[2023-05-18 06:42] LABS: Hematocrit 27.6 % (42.0-52.0); Hemoglobin 9.3 g/dl (14.0-18.0); Mean Corpuscular HGB Conc 33.7 g/dl (31.0-36.0); Mean Corpuscular Volume 94.8 fL (80.0-98.0); Mean Platelet Volume 8.5 fL (9.4-12.4); Platelet Count 362 X10*3/uL (160-400); Red Blood Count 2.91 X10*6/uL (4.60-5.80); Red Cell Distribution Width 12.8 % (11.0-16.0); White Blood Count 10.2 X10*3/uL (4.8-10.8)
[2023-05-18 06:55] LABS: Anion Gap 12 (12-20); Blood Urea Nitrogen 14 mg/dL (9-16); Calcium 9.1 mg/dL (8.4-10.2); Carbon Dioxide 24 mmol/L (22-29); Chloride 108 mmol/L (96-108); Creatinine Clr Calc Pharmacy 99.1; Estimated Glomerular Filt Rate > 60; Glucose Random 179 mg/dL (60-115); Potassium 4.3 mmol/L (3.3-5.1); Sodium 140 mmol/L (135-145)
[2023-05-18 07:47] VITALS: BP 158/74; PULSE 63; RESP 18; TEMP 36.6; O2SAT 96
--- NOTE | 2023-05-18 09:18 | MHC.CM.PN ---
PER REVIEW OF NOTES, PATIENT WILL REQUIRE 6 WEEKS OF IV ERTAPENEM. REFERRAL TO [facility]
[2023-05-18] MEDS: Insulin Lispro 100 UNIT/ML 3 ML VIAL SUBCUT (09:44)
[2023-05-18] MEDS: Acetaminophen 325 MG TABLET 650 MG PO (09:44)
[2023-05-18] MEDS: Aspirin 81 MG TAB.CHEW PO (09:45)
[2023-05-18] MEDS: Gabapentin 300 MG CAPSULE PO (09:45)
[2023-05-18] MEDS: Multivitamin TABLET 1 TAB PO (09:45)
[2023-05-18] MEDS: Ferrous Sulfate 324 MG TABLET.DR PO (09:45)
[2023-05-18] MEDS: Propranolol HCL 10 MG TABLET PO (09:45)
[2023-05-18] MEDS: Losartan Potassium 25 MG TABLET PO (09:45)
[2023-05-18] MEDS: Cyanocobalamin (Vitamin B-12) 1,000 MCG TABLET 1000 MCG PO (09:45)
[2023-05-18] MEDS: Silver Sulfadiazine 1 % Cream 20 GM TUBE 1 APPL TOPICAL (09:46)
[2023-05-18 11:20] LABS: Glucose, Whole Blood 167 mg/dL (60-115)
[2023-05-18 11:35] LABS: Glucose, Whole Blood 168 mg/dL (60-115)
--- NOTE | 2023-05-18 11:43 | P.PNVS_ITS ---
Subjective Subjective Date of Service: 05/18/23 Patient reports: no new complaints and feels better Interval history: Very pleasant 72-year-old gentleman presents for follow-up regarding nonhealing right great toe. He underwent diagnostic angiogram yesterday which was essentially negative. He now presents for routine follow-up regarding the wound. He has had no interval changes. Now presents for routine follow-up. He feels fairly well and would like to go home. Physical Exam Vital Signs: Vital Signs: Last Vital Signs Temp 97.9 F 05/18/23 07:47 Pulse 63 05/18/23 07:47 Resp 18 05/18/23 07:47 BP 158/74 H 05/18/23 07:47 Pulse Ox 96 05/18/23 07:47 O2 Del Method Room Air 05/18/23 07:47 BMI result Body Mass Index 33.3 Const: General: cooperative, healthy appearing and no acute distress Orientation/consciousness: oriented to person, oriented to place and oriented to time HEENT: Head: Yes normal to inspection Neck: Carotids: no bruits Chest: Chest palpation & inspection: normal inspection of the chest Resp: Effort & Inspection: normal respiratory effort and able to speak in complete sentences Auscultation: clear to auscultation bilaterally Cardio: Rate: regular rate Heart sounds: S1 normal heart sound present and S2 normal heart sound present GI: Inspection: Yes normal to inspection Skin: Other: Right great toe plantar wound relatively clean lateral wound cleared out. There is underlying bone General skin exam: no rashes or lesions noted Wounds: no wounds Neuro: General: oriented to person, oriented to place, oriented to time and CN's II-XI intact bilaterally Extrem: General: Yes normal to inspection, Yes full ROM and Yes no clubbing, c yanosis or edema Psych: Appearance: grossly normal and well kempt Speech and movement: Normal speech and movement present Affect: normal affect Progress Note: A&P Assessment and plan (1) PAD (peripheral artery disease): Status: Acute Assessment and Plan: In short patient has a diabetic foot ulcer. In terms of his arterial status it is stable and should be adequate to heal the wound. The concern is the underlying osteomyelitis and overall wound. He already has a PICC line and is scheduled for 6 weeks of IV antibiotics. We will follow him for local wound care. He upon discharge he can see me as an outpatient in approximately 2 weeks time. Wound care orders were written. Should there be any questions or concerns please do not hesitate to contact us. Thank you for allowing us to assist in his care. Time Spent With Patient Time: Total time managing care of this patient today ____ minutes. Procedures Date of Service Date of Service: 05/18/23 Quality Stroke Does the patient have a stroke diagnosis?: No VTE Prior VTE?: No VTE Risk Level:: Medical - moderate - high VTE Device Contraindication: Treatment Not Indicated VTE Drug Contraindication: N/A - Med Ordered
--- NOTE | 2023-05-18 12:15 | PM.DS ---
DS: Providers Provider Date of Service: 05/18/23 Date of admission: 05/11/23 17:58 Primary care physician: Emily Echols MD Consults: 05/11/23 18:46 Consult to Infectious Diseases Routine Consulting Provider: [facility] Reason for consultation: Diabetic right foot ulcer concerning for osteomyelitis 05/11/23 19:46 Consult to Wound Care Routine Reason for consultation: New-onset diabetic foot ulcer w/osteomyelitis Has provider been notified: Yes 05/13/23 09:41 Consult to Vascular Surgery Routine Consulting Provider: [facility] [place] [facility] Reason for consultation: peroneal stenosis? DM osteo 05/15/23 14:48 Consult to Infectious Diseases Routine Consulting Provider: BA MACK Reason for consultation: osteo rt foor Has provider been notified: Yes DS: Diagnosis Discharge Diagnosis (1) Osteomyelitis: Status: Acute (2) PAD (peripheral artery disease): Status: Acute (3) BRITTNEY (acute kidney injury): Status: Acute DS: Summary Hospital Course Hospital Course: Pt is a 72-year-old male with a PMH significant for?tea-[id number]-[id number] diabetes type 2 with diabetic neuropathy, HTN, and HLD who presents to the ED for evaluation right foot wound and redness. Patient with diabetic peripheral neuropathy and states he does feel anything on the bottoms his feet. Two weeks prior pt was on a tour of [place] and reports walking much more than normal. Developed a blister on the bottom of his right foot that eventually popped. Last weekend the patient noticed his right foot beginning to get red and had foul-smelling discharge from the site of his previous blister. The patient saw his mixing machine tender cork rod who started him on Bactrim on 05/08 and then added Levaquin on 05/09. Patient also spoke to his primary care earlier today who suggested he come to the emergency room for further evaluation and likely need for IV antibiotics. Patient does note that a few years back he developed a large blister at the same site on his right foot, though he did not experience any cellulitis or osteomyelitis at that time and it healed without the use of antibiotics. Reports feeling chills for the past 3 days, but has not taken his temperature. Denies any other systemic symptoms. No nausea, vomiting, abdominal pain. No diarrhea. Denies chest pain/pressure, palpitations. No shortness of breath. In the ED patient was afebrile, with slightly soft BP of 118/48, and satting at 97% on RA. Labs were significant for WBC 12.4, H&H 9.9/29.2, sodium 134, BUN 26, creatinine 1.90, random glucose 216 CRP 18.83, ESR pending. X-ray of right foot showed shows soft tissue swelling and ulceration adjacent to the medial aspect of the 1st metatarsophalangeal joint subtle cortical irregularity and focal lucency concerning for osteomyelitis. Pt was treated with vancomycin, Zosyn and IVF. Pt will be admitted to the hospital for treatment further evaluation of diabetic right foot ulcer concerning for osteomyelitis Hospital course Admitted to general medical floor and continued on IV vancomycin and Zosyn. MRI was done which confirmed likely osteomyelitis 1st metatarsal head. Infectious Disease was consulted who recommended 6 weeks of meropenem. He was seen in consultation by vascular surgery; vascular runoff studies demonstrated fair flow distally and vascular reason agreement with a trial of medical treatment and follow-up in the office. At this point in time is medically acceptable for discharge Time Attestation Discharge coordination time: Greater than 30 minutes Quality: Safe Use of Opioids Does Pt have an Active Cancer Diagnosis on the Problem List?: No Quality: Stroke Does the patient have a stroke diagnosis?: No Physical Exam Vital Signs: Vital Signs: Last Vital Signs Temp 97.9 F 05/18/23 07:47 Pulse 63 05/18/23 07:47 Resp 18 05/18/23 07:47 BP 158/74 H 05/18/23 07:47 Pulse Ox 96 05/18/23 07:47 O2 Del Method Room Air 05/18/23 07:47 BMI result Body Mass Index 33.3 Const: Other: Awake alert no acute distress Resp: Other: Clear to auscultation bilaterally no rales rhonchi or wheezes Cardio: Other: No S4; positive S1-S2; no S3 murmurs rubs or gallops Extrem: Other: No edema bilaterally DS: Data Data Completed and Pending Labs on day of discharge: Laboratory Results - last 24 hr 05/17/23 05/17/23 05/18/23 16:52 20:01 06:25 WBC 10.2 RBC 2.91 L Hgb 9.3 L Hct 27.6 L MCV 94.8 MCH 32.0 MCHC 33.7 RDW 12.8 Plt Count 362 D MPV 8.5 L Absolute Nucleated RBC 0.000 Nucleated RBC % (auto) 0.0 Sodium 140 Potassium 4.3 Chloride 108 Carbon Dioxide 24 Anion Gap 12 BUN 14 Creatinine 0.83 Estim Creat Clear Calc 99.1 Estimated GFR > 60 POC Glucose 172 H 219 H Random Glucose 179 H Calcium 9.1 05/18/23 05/18/23 07:29 11:23 WBC RBC Hgb Hct MCV MCH MCHC RDW Plt Count MPV Absolute Nucleated RBC Nucleated RBC % (auto) Sodium Potassium Chloride Carbon Dioxide Anion Gap BUN Creatinine Estim Creat Clear Calc Estimated GFR POC Glucose 167 H 168 H Random Glucose Calcium Discharge Plan Discharge Anticipated Discharge Date/Time: 05/18/23 12:09 Patient Disposition: Home Health Service Discharge Diagnosis: Osteomyelitis Referrals: Emily Echols MD [Primary Care Provider] - 1 Week Discharge Medications: New losartan 25 mg Tablet 25 mg PO DAILY Qty: 30 0RF Protocol: Hold for SBP< HOLD for SBP < : 90 oxycodone 5 mg Tablet 5 mg PO Q4H PRN (Reason: Pain, Moderate(Pain Scale 4-6)) Qty: 30 0RF Rx Instructions: Partial Fill upon patient request. ferrous sulfate 324 mg (65 mg iron) Tablet,Delayed Release (Dr/Ec) 324 mg PO DAILY Qty: 30 0RF Continued trazodone 100 mg Tablet 100 mg PO BEDTIME PRN (Reason: Insomnia) losartan 25 mg Tablet 25 mg PO DAILY allopurinol 300 mg Tablet 300 mg PO Q5D rosuvastatin 40 mg Tablet 40 mg PO BEDTIME silver sulfadiazine 1 % cream 1 appl topical Q OTHER DAY cyanocobalamin (vitamin B-12) 1,000 mcg Tablet 1,000 mcg PO DAILY propranolol 60 mg Tablet 10 mg PO BID gabapentin 300 mg Capsule 300 mg PO TID aspirin 81 mg Tablet,Chewable 81 mg PO DAILY vitamin B complex Tablet 1 tab PO DAILY omega 6-kfo-cof-fish oil [Fish Oil] 1,000 mg (120 mg-180 mg) Capsule 1 cap PO DAILY metformin 1,000 mg Tablet 1,000 mg PO BID Discontinued sulfamethoxazole-trimethoprim 800-160 mg tablet 2 tab PO BID levofloxacin 500 mg tablet 500 mg PO DAILY Discharge Orders: Discharge Order (Routine); Ordered 05/18/23 Ordered By: Singh Rodas Diet: Advance to usual diet Activity on Discharge: As tolerated Stand Alone Forms: Patient Portal Discharge page Activity Restrictions/Additional Instructions: Wound care upon discharge: Right great toe - plantar aspect packed with quarter-inch packing strip. Lateral aspect alginate dressing. Cover with Kerlix wrap. To be changed daily. Please call Dr. Baron at [phone] for 2 week follow up Care Plan Goals: Meropenem IV daily x6 weeks Health Concerns: Losartan has been added to her blood pressure regimen. Continue all other outpatient therapies Plan of Treatment: Make an appointment follow-up with Dr. Baron in 2 weeks Assessment: See discharge summary
[2023-05-18] MEDS: Ertapenem Sodium 1 GM in 0.9 % Sodium Chloride 50 ML IV (14:00)
== END 2023-05-18 15:12 | disposition home health service (06) | DRG 300 ==
LOC: HO.ED 17:12 → HO.EDOVER 18:07 → HO.S3 19:27
PROVIDERS: Family Medicine; Hospitalist; Physician Assistant; Surgery Vascular Surgery; Admitting Provider Student in an Organized Health Care Education/Training Program; Emergency Provider Emergency Medicine; PCP Hospitalist; Visit Provider Hospitalist
PROC: 02HV33Z Insertion of Infusion Device into Superior Vena Cava, Percutaneous Approach (ICD-10-PCS; principal; 2023-05-15 07:30)
PROC: B40D1ZZ Plain Radiography of Aorta and Bilateral Lower Extremity Arteries using Low Osmolar Contrast (ICD-10-PCS; principal; 2023-05-17 11:30)
DX: E11.51 Type 2 diabetes mellitus with diabetic peripheral angiopathy without gangrene (principal); L03.115 Cellulitis of right lower limb; M86.171 Other acute osteomyelitis, right ankle and foot; N17.9 Acute kidney failure, unspecified; L97.516 Non-pressure chronic ulcer of other part of right foot with bone involvement without evidence of necrosis; E11.40 Type 2 diabetes mellitus with diabetic neuropathy, unspecified; I70.235 Atherosclerosis of native arteries of right leg with ulceration of other part of foot; E11.69 Type 2 diabetes mellitus with other specified complication; D50.9 Iron deficiency anemia, unspecified; D63.8 Anemia in other chronic diseases classified elsewhere; I10 Essential (primary) hypertension; Z79.82 Long term (current) use of aspirin; Z79.84 Long term (current) use of oral hypoglycemic drugs; Z79.899 Other long term (current) drug therapy
CPT/HCPCS: 36247; 36415; 36573; 73630; 73720; 75630; 76775; 76937; 80048; 80053; 80202; 82565; 82570; 82607; 82746; 82947; 83036; 83540; 83605; 83690; 83935; 84300; 85025; 85027; 85652; 86140; 87040; 87070; 87205; 93926; 99152; 99153; 99285; A9585; C1751; C1769; C1887; J0692; J1335; J1650; J2185; J2543; J3370; J3371

== ENCOUNTER → 2023-05-11 17:58 | Outpatient (BNV) | payer MEDICARE, SELFPAY | PROVIDERS: Admitting Provider Student in an Organized Health Care Education/Training Program; Emergency Provider Emergency Medicine; PCP Hospitalist; Visit Provider Internal Medicine | DX: M86.171 Other acute osteomyelitis, right ankle and foot (principal); L03.90 Cellulitis, unspecified | CPT/HCPCS: 99222; 99499 ==

== ENCOUNTER → 2023-05-11 17:58 | Outpatient (BNV) | payer MEDICARE, SELFPAY | PROVIDERS: Admitting Provider Student in an Organized Health Care Education/Training Program; Emergency Provider Emergency Medicine; PCP Hospitalist; Visit Provider Surgery Vascular Surgery | DX: I73.9 Peripheral vascular disease, unspecified (principal); E11.621 Type 2 diabetes mellitus with foot ulcer; L97.516 Non-pressure chronic ulcer of other part of right foot with bone involvement without evidence of necrosis | CPT/HCPCS: 36247; 75625; 75710; 76937; 99152; 99222; 99232 ==

== ENCOUNTER → 2023-05-11 17:58 | Outpatient (BNV) | payer MEDICARE, SELFPAY | PROVIDERS: Admitting Provider Student in an Organized Health Care Education/Training Program; Emergency Provider Emergency Medicine; PCP Hospitalist; Visit Provider Student in an Organized Health Care Education/Training Program | DX: M86.171 Other acute osteomyelitis, right ankle and foot (principal); I73.9 Peripheral vascular disease, unspecified; N17.9 Acute kidney failure, unspecified | CPT/HCPCS: 99223; 99232; 99233; 99239 ==

== ENCOUNTER 2023-05-23 07:57 | Outpatient (RCR) | payer MEDICARE, SELFPAY ==
--- NOTE | ~2023-05-23 | XR_ITS ---
EXAMINATION: XR CHEST CLINICAL INFORMATION: Preprocedure COMPARISON: None available. TECHNIQUE: 2 views of the chest were obtained. FINDINGS: No significant abnormality is noted involving the heart, lungs, mediastinum, bony thorax or soft tissues. XR/XR chest 2V IMPRESSION: Unremarkable examination.
--- NOTE | ~2023-05-23 | XR_ITS ---
EXAMINATION: XR FOOT, RIGHT CLINICAL INFORMATION: Nonhealing wound. COMPARISON: MR foot 05/14/2023. X-ray foot 05/11/2023. TECHNIQUE: AP, lateral, and oblique views of the right foot. FINDINGS: Ulceration and swelling along the medial aspect of the 1st metatarsophalangeal joint with cortical irregularity and possible destructive process involving the medial aspects of the 1st metatarsal head, base of the 1st proximal phalanx and sesamoid bone. Bones are diffusely demineralized. Multifocal degenerative changes. Scattered vascular calcifications. Prominent dorsal and plantar calcaneal spurs. XR/XR foot RT min 3V IMPRESSION: Ulceration and swelling along the medial aspect of the 1st metatarsophalangeal joint with cortical irregularity and possible destructive process involving the medial aspects of the 1st metatarsal head, base of the 1st proximal phalanx and sesamoid bone. MRI should be considered for further evaluation. This study was presented today, 07/24/2023, at 8:40 AM for interpretation. Inpatient results provided at this time, as requested by referring provider.
[2023-07-25 12:36] LABS: Estimated Average Glucose 148 mg/dL; Hemoglobin A1c % 6.8 % (<6.0)
[2023-07-25 12:46] LABS: Alanine Aminotransferase 11 U/L (0-40); Albumin Level 3.9 g/dL (3.5-5.0); Alkaline Phosphatase 66 U/L (39-117); Anion Gap 17 (12-20); Aspartate Amino Transferase 15 U/L (5-37); Bilirubin Total 0.5 mg/dL (0.0-1.0); Blood Urea Nitrogen 23 mg/dL (9-16); C Reactive Protein 15.43 mg/dL (< or = 0.50); Calcium 10.4 mg/dL (8.4-10.2); Carbon Dioxide 23 mmol/L (22-29); Chloride 103 mmol/L (96-108); Estimated Glomerular Filt Rate > 60; Glucose Random 163 mg/dL (60-115); Potassium 4.3 mmol/L (3.3-5.1); Sodium 139 mmol/L (135-145); Total Protein 7.8 g/dL (6.5-8.0)
[2023-07-25 13:16] LABS: Erythrocyte Sedimentation Rate 116 MM/HR (0-15)
== END 2023-08-07 17:00 | disposition home or self-care (01) ==
LOC: HO.WCC 07:57
PROVIDERS: PCP Hospitalist; Visit Provider Surgery
DX: E11.621 Type 2 diabetes mellitus with foot ulcer (principal); L97.513 Non-pressure chronic ulcer of other part of right foot with necrosis of muscle; L97.514 Non-pressure chronic ulcer of other part of right foot with necrosis of bone; E11.69 Type 2 diabetes mellitus with other specified complication; M86.171 Other acute osteomyelitis, right ankle and foot; E11.43 Type 2 diabetes mellitus with diabetic autonomic (poly)neuropathy; E11.65 Type 2 diabetes mellitus with hyperglycemia; Z79.84 Long term (current) use of oral hypoglycemic drugs; Z79.891 Long term (current) use of opiate analgesic; Z79.899 Other long term (current) drug therapy
CPT/HCPCS: 11042; 11043; 11044; 15275; 36415; 71046; 73630; 80053; 83036; 84134; 85652; 86140; 88304; 88305; 88311; 97597; Q4187

== ENCOUNTER 2023-05-23 12:04 | Outpatient (REF) | payer MEDICARE, SELFPAY ==
[2023-05-23 12:08] LABS: MANUAL DIFF FLAG NO
[2023-05-23 12:20] LABS: Basophils Absolute Auto 0.1 X10*3/uL (0.0-0.2); Basophils Percent Auto 0.6 % (0-2); Eosinophils Absolute Auto 0.1 X10*3/uL (0.0-0.4); Hematocrit 30.8 % (42.0-52.0); Hemoglobin 9.9 g/dl (14.0-18.0); Imm Gran Abs Auto 0.04 X10*3/uL (0.00-0.03); Imm Gran Pct Auto 0.3 % (0.0-0.4); Lymphocytes Absolute Auto 3.8 X10*3/uL (1.2-4.9); Lymphocytes Percent Auto 33.4 % (20-40); Mean Corpuscular HGB Conc 32.1 g/dl (31.0-36.0); Mean Corpuscular Hemoglobin 30.7 pg (27.0-33.0); Mean Corpuscular Volume 95.7 fL (80.0-98.0); Monocytes Absolute Auto 0.5 X10*3/uL (0.1-1.2); Monocytes Percent Auto 4.6 % (2-11); Neutrophils Absolute Auto 6.9 x10*3/uL (2.0-8.3); Neutrophils Percent Auto 60.1 % (45-73); Platelet Count 451 X10*3/uL (160-400); Red Blood Count 3.22 X10*6/uL (4.60-5.80); White Blood Count 11.4 X10*3/uL (4.8-10.8)
[2023-05-23 12:38] LABS: Blood Urea Nitrogen 17 mg/dL (9-16); Estimated Glomerular Filt Rate > 60
== END 2023-05-23 12:05 | disposition home or self-care (01) ==
LOC: HO.HVNA 12:04
PROVIDERS: Visit Provider Internal Medicine
DX: Z48.812 Encounter for surgical aftercare following surgery on the circulatory system (principal)
CPT/HCPCS: 36415; 82565; 84520; 85025

== ENCOUNTER 2023-05-29 16:42 | Outpatient (REF) | payer MEDICARE, SELFPAY ==
[2023-05-29 16:46] LABS: MANUAL DIFF FLAG NO
[2023-05-29 16:57] LABS: Basophils Absolute Auto 0.1 X10*3/uL (0.0-0.2); Basophils Percent Auto 0.7 % (0-2); Eosinophils Absolute Auto 0.2 X10*3/uL (0.0-0.4); Eosinophils Percent Auto 1.8 % (0-4); Hematocrit 28.7 % (42.0-52.0); Hemoglobin 9.4 g/dl (14.0-18.0); Imm Gran Abs Auto 0.02 X10*3/uL (0.00-0.03); Imm Gran Pct Auto 0.2 % (0.0-0.4); Lymphocytes Absolute Auto 3.6 X10*3/uL (1.2-4.9); Lymphocytes Percent Auto 43.4 % (20-40); Mean Corpuscular HGB Conc 32.8 g/dl (31.0-36.0); Mean Corpuscular Hemoglobin 30.9 pg (27.0-33.0); Mean Corpuscular Volume 94.4 fL (80.0-98.0); Mean Platelet Volume 9.4 fL (9.4-12.4); Monocytes Absolute Auto 0.4 X10*3/uL (0.1-1.2); Monocytes Percent Auto 5.3 % (2-11); Neutrophils Percent Auto 48.6 % (45-73); Platelet Count 358 X10*3/uL (160-400); Red Blood Count 3.04 X10*6/uL (4.60-5.80); Red Cell Distribution Width 13.2 % (11.0-16.0); White Blood Count 8.3 X10*3/uL (4.8-10.8)
[2023-05-29 17:29] LABS: Blood Urea Nitrogen 19 mg/dL (9-16); Estimated Glomerular Filt Rate > 60
== END 2023-05-29 16:43 | disposition home or self-care (01) ==
LOC: HO.HVNA 16:42
PROVIDERS: Visit Provider Internal Medicine
DX: M86.171 Other acute osteomyelitis, right ankle and foot (principal)
CPT/HCPCS: 36415; 82565; 84520; 85025

== ENCOUNTER 2023-06-04 12:16 | Outpatient (REF) | payer MEDICARE, SELFPAY ==
[2023-06-04 12:20] LABS: MANUAL DIFF FLAG NO
[2023-06-04 12:28] LABS: Basophils Absolute Auto 0.1 X10*3/uL (0.0-0.2); Basophils Percent Auto 0.6 % (0-2); Eosinophils Absolute Auto 0.2 X10*3/uL (0.0-0.4); Eosinophils Percent Auto 2.3 % (0-4); Hematocrit 29.9 % (42.0-52.0); Hemoglobin 9.8 g/dl (14.0-18.0); Imm Gran Abs Auto 0.02 X10*3/uL (0.00-0.03); Imm Gran Pct Auto 0.2 % (0.0-0.4); Lymphocytes Absolute Auto 3.2 X10*3/uL (1.2-4.9); Lymphocytes Percent Auto 37.9 % (20-40); Mean Corpuscular HGB Conc 32.8 g/dl (31.0-36.0); Mean Corpuscular Hemoglobin 30.8 pg (27.0-33.0); Mean Platelet Volume 9.7 fL (9.4-12.4); Monocytes Absolute Auto 0.5 X10*3/uL (0.1-1.2); Monocytes Percent Auto 5.3 % (2-11); Neutrophils Absolute Auto 4.6 x10*3/uL (2.0-8.3); Neutrophils Percent Auto 53.7 % (45-73); Platelet Count 310 X10*3/uL (160-400); Red Blood Count 3.18 X10*6/uL (4.60-5.80); Red Cell Distribution Width 13.3 % (11.0-16.0); White Blood Count 8.5 X10*3/uL (4.8-10.8)
[2023-06-04 13:11] LABS: Blood Urea Nitrogen 18 mg/dL (9-16); Estimated Glomerular Filt Rate > 60
== END 2023-06-04 12:17 | disposition home or self-care (01) ==
LOC: HO.HVNA 12:16
PROVIDERS: Visit Provider Internal Medicine
DX: E11.621 Type 2 diabetes mellitus with foot ulcer (principal)
CPT/HCPCS: 36415; 82565; 84520; 85025

== ENCOUNTER 2023-06-05 15:21 | Outpatient (AMB) | payer MEDICARE, SELFPAY ==
--- NOTE | 2023-06-05 15:23 | A.OFFVIS_ITS ---
Intake Intake Visit Reasons: right angio follow up on 05/17/23 Intake Note: 2 week follow up Right LE Angio 05/17/23. Has Right foot non-healing ulcer. [facility] Sun & Sunday and wound care center every Sunday ( started 2 weeks ago). Has Alginate in wound bed. IV Abx ( picc line Right arm). Drainage is heavy. Accompanied by: Self / Same As Patient Allergies No Known Allergies [No Known Allergies*] Allergy (Verified 06/05/23 15:27) HPI right angio follow up on 05/17/23 HPI Details Very pleasant 72-year-old gentleman presents for follow-up evaluation regarding nonhealing right great toe. He has undergone diagnostic angiogram which demonstrated appropriate blood flow. He continues to wash this right great toe closely. He is being followed by the [facility] and has visit scheduled weekly on Wednesdays. He now presents to us for follow-up evaluation [facility] Medical History (Updated 06/05/23 @ 15:37 by Joe Baron MD) PAD (peripheral artery disease) Ulcer of right great toe due to diabetes mellitus Anemia Household Members: None Housing: House Do you presently have visiting nurse or other home services: No Unable to assess alcohol history related to: Unknown Patient Tobacco Use Status: Former Tobacco user e-Cigarette/Vaping Use: Never Used Second Hand Smoke Exposure: No service: No Physical Exam Cardio Other: Bilateral DP signals Skin Other: Right great toe medial opening 2.5 x 1 cm plantar surface opening 0.3 cm in diameter. Clean with good granulation base. Results Reviewed Results Reviewed: Angiogram from 05/17/2023 images were reviewed Assessment & Plan Assessment & Plan (1) Ulcer of right great toe due to diabetes mellitus: Code(s): E11.621 - Type 2 diabetes mellitus with foot ulcer; L97.519 - Non-pressure chronic ulcer of other part of right foot with unspecified severity (2) PAD (peripheral artery disease): Code(s): I73.9 - Peripheral vascular disease, unspecified Plan: In short wound appears to be doing well. Arterial angiogram was negative. I will schedule him for 3 month surveillance. Continues to follow the [facility] in appears to be doing extremely well with that. Once again he will follow up with us in approximately 3 months time. Thank you for allowing us to assist in his care. Orders: Orders US arterial duplex LE BI 3 Months I73.9 - Peripheral vascular disease, unspecified Coding Level of Care Code Est Pt Level 4 (10032) Diagnoses Ulcer of right great toe due to diabetes mellitus E11.621; L97.519 PAD (peripheral artery disease) I73.9
== END 2023-06-05 15:35 | disposition home or self-care (01) ==
PROVIDERS: PCP Hospitalist; Visit Provider Surgery Vascular Surgery
DX: E11.621 Type 2 diabetes mellitus with foot ulcer (principal); L97.519 Non-pressure chronic ulcer of other part of right foot with unspecified severity; I73.9 Peripheral vascular disease, unspecified
CPT/HCPCS: 99213

== ENCOUNTER → 2023-06-05 15:21 | Outpatient (BNVA) | payer MEDICARE, SELFPAY | PROVIDERS: PCP Hospitalist; Visit Provider Surgery Vascular Surgery | DX: I73.9 Peripheral vascular disease, unspecified (principal); E11.621 Type 2 diabetes mellitus with foot ulcer; L97.519 Non-pressure chronic ulcer of other part of right foot with unspecified severity | CPT/HCPCS: 99212 ==

== ENCOUNTER 2023-06-11 12:10 | Outpatient (REF) | payer MEDICARE, SELFPAY ==
[2023-06-11 12:14] LABS: MANUAL DIFF FLAG NO
[2023-06-11 12:19] LABS: Basophils Percent Auto 0.5 % (0-2); Eosinophils Absolute Auto 0.2 X10*3/uL (0.0-0.4); Eosinophils Percent Auto 2.6 % (0-4); Hematocrit 28.7 % (42.0-52.0); Hemoglobin 9.5 g/dl (14.0-18.0); Imm Gran Abs Auto 0.02 X10*3/uL (0.00-0.03); Imm Gran Pct Auto 0.3 % (0.0-0.4); Lymphocytes Absolute Auto 2.8 X10*3/uL (1.2-4.9); Lymphocytes Percent Auto 36.6 % (20-40); Mean Corpuscular HGB Conc 33.1 g/dl (31.0-36.0); Mean Corpuscular Hemoglobin 30.5 pg (27.0-33.0); Mean Corpuscular Volume 92.3 fL (80.0-98.0); Mean Platelet Volume 9.3 fL (9.4-12.4); Monocytes Absolute Auto 0.4 X10*3/uL (0.1-1.2); Monocytes Percent Auto 5.7 % (2-11); Neutrophils Absolute Auto 4.1 x10*3/uL (2.0-8.3); Neutrophils Percent Auto 54.3 % (45-73); Platelet Count 228 X10*3/uL (160-400); Red Blood Count 3.11 X10*6/uL (4.60-5.80); Red Cell Distribution Width 13.6 % (11.0-16.0); White Blood Count 7.6 X10*3/uL (4.8-10.8)
[2023-06-11 12:34] LABS: Blood Urea Nitrogen 11 mg/dL (9-16); Estimated Glomerular Filt Rate > 60
== END 2023-06-11 12:11 | disposition home or self-care (01) ==
LOC: HO.HVNA 12:10
PROVIDERS: Visit Provider Internal Medicine
DX: E11.621 Type 2 diabetes mellitus with foot ulcer (principal)
CPT/HCPCS: 36415; 82565; 84520; 85025

== ENCOUNTER 2023-06-18 11:18 | Outpatient (REF) | payer MEDICARE, SELFPAY ==
[2023-06-18 11:22] LABS: MANUAL DIFF FLAG NO
[2023-06-18 11:34] LABS: Basophils Absolute Auto 0.1 X10*3/uL (0.0-0.2); Basophils Percent Auto 0.5 % (0-2); Eosinophils Absolute Auto 0.2 X10*3/uL (0.0-0.4); Eosinophils Percent Auto 1.7 % (0-4); Hemoglobin 9.7 g/dl (14.0-18.0); Imm Gran Abs Auto 0.03 X10*3/uL (0.00-0.03); Imm Gran Pct Auto 0.3 % (0.0-0.4); Lymphocytes Percent Auto 40.3 % (20-40); Mean Corpuscular HGB Conc 33.4 g/dl (31.0-36.0); Mean Corpuscular Hemoglobin 30.9 pg (27.0-33.0); Mean Corpuscular Volume 92.4 fL (80.0-98.0); Mean Platelet Volume 9.3 fL (9.4-12.4); Monocytes Absolute Auto 0.6 X10*3/uL (0.1-1.2); Neutrophils Absolute Auto 5.1 x10*3/uL (2.0-8.3); Neutrophils Percent Auto 51.2 % (45-73); Platelet Count 254 X10*3/uL (160-400); Red Blood Count 3.14 X10*6/uL (4.60-5.80); Red Cell Distribution Width 13.4 % (11.0-16.0)
[2023-06-18 12:12] LABS: Blood Urea Nitrogen 12 mg/dL (9-16); Estimated Glomerular Filt Rate > 60
== END 2023-06-18 11:19 | disposition home or self-care (01) ==
LOC: HO.HVNA 11:18
PROVIDERS: Visit Provider Internal Medicine
DX: E11.621 Type 2 diabetes mellitus with foot ulcer (principal)
CPT/HCPCS: 36415; 82565; 84520; 85025

== ENCOUNTER 2023-06-22 13:08 | Outpatient (AMB) | payer MEDICARE, SELFPAY ==
--- NOTE | 2023-06-22 13:23 | A.OFFVIS_ITS ---
Intake Vital Signs 3 06/22/23 13:37 Weight 229 lb BP 125/61 Pulse 67 Pulse Source Pulse Oximeter Temp 97.7 F Temp Source Oral Pulse Oximetry (%) 99 Intake Visit Reasons: ref.[facility],Osteomyelitis,med.and 06/26/23 Allergies No Known Allergies [No Known Allergies*] Allergy (Verified 06/22/23 13:38) HPI ref.[facility],Osteomyelitis,med.and 06/26/23 2 HPI0 Details I had seen him at hospital. He is finishing Ertapenem for UTI last date June 26. He has no complaints. [facility] Medical History PAD (peripheral artery disease) Ulcer of right great toe due to diabetes mellitus Anemia Social History Household Members: None Housing: House Do you presently have visiting nurse or other home services: No Unable to assess alcohol history related to: Unknown Patient Tobacco Use Status: Former Tobacco user e-Cigarette/Vaping Use: Never Used Second Hand Smoke Exposure: No service: No Review of Systems Const All systems reviewed & are unremarkable except as noted in HPI and below Physical Exam Vital Signs: Last Vital Signs Temp 97.7 F 06/22/23 13:37 Pulse 67 06/22/23 13:37 BP 125/61 06/22/23 13:37 Pulse Ox 99 06/22/23 13:37 Const General: cooperative Orientation/consciousness: patient oriented x3 HEENT Head: Yes normal to inspection Mouth: Normal oral and palatal mucosa present Eyes General: appearance normal, both eyes and all related structures Pupils: Equal, round and reactive pupils present Resp Effort & Inspection: normal respiratory effort Cardio Rate: regular rate Rhythm: regular rhythm GI Palpation (GI): Soft to palpation and nontender General: Yes no CVA tenderness Back/Spine/Pelvis Back: no CVA tenderness Skin General skin exam: no rashes or lesions noted Neuro General: patient oriented x3 Cranial nerves: Yes CN's II-XII intact bilaterally and Yes Equal, round and reactive pupils present Extrem Other: right great toe improved Psych Appearance: grossly normal Assessment & Plan Assessment & Plan (1) Ulcer of right great toe due to diabetes mellitus: Comment: He is improving Code(s): E11.621 - Type 2 diabetes mellitus with foot ulcer; L97.519 - Non-pressure chronic ulcer of other part of right foot with unspecified severity Plan: Finish IV antibiotics 06/26. See as needed. Orders: Orders 2 IR cvc remove any age 1206/22/23 M86.9 - Osteomyelitis, unspecified Medications: New 2 doxycycline hyclate 100 mg PO BID 60 caps 1RF 30 days Coding Level of Care Code Est Pt Level 3 (15629) Diagnoses Ulcer of right great toe due to diabetes mellitus E11.621; L97.519
[2023-06-22 13:37] VITALS: BP 125/61; PULSE 67; TEMP 36.5; O2SAT 99
== END 2023-06-22 14:13 | disposition home or self-care (01) ==
PROVIDERS: PCP Hospitalist; Visit Provider Internal Medicine
DX: E11.621 Type 2 diabetes mellitus with foot ulcer (principal); L97.519 Non-pressure chronic ulcer of other part of right foot with unspecified severity
CPT/HCPCS: 99213

== ENCOUNTER → 2023-06-22 13:08 | Outpatient (BNVA) | payer MEDICARE, SELFPAY | PROVIDERS: PCP Hospitalist; Visit Provider Internal Medicine | DX: E11.621 Type 2 diabetes mellitus with foot ulcer (principal); L97.519 Non-pressure chronic ulcer of other part of right foot with unspecified severity | CPT/HCPCS: 99212 ==

== ENCOUNTER 2023-06-25 11:46 | Outpatient (REF) | payer MEDICARE, SELFPAY ==
[2023-06-25 11:50] LABS: MANUAL DIFF FLAG NO
[2023-06-25 12:06] LABS: Basophils Absolute Auto 0.1 X10*3/uL (0.0-0.2); Basophils Percent Auto 0.5 % (0-2); Eosinophils Absolute Auto 0.2 X10*3/uL (0.0-0.4); Eosinophils Percent Auto 1.8 % (0-4); Hematocrit 28.6 % (42.0-52.0); Hemoglobin 9.7 g/dl (14.0-18.0); Imm Gran Abs Auto 0.04 X10*3/uL (0.00-0.03); Imm Gran Pct Auto 0.4 % (0.0-0.4); Lymphocytes Absolute Auto 3.8 X10*3/uL (1.2-4.9); Lymphocytes Percent Auto 37.4 % (20-40); Mean Corpuscular HGB Conc 33.9 g/dl (31.0-36.0); Mean Corpuscular Volume 91.4 fL (80.0-98.0); Mean Platelet Volume 9.2 fL (9.4-12.4); Monocytes Absolute Auto 0.7 X10*3/uL (0.1-1.2); Monocytes Percent Auto 6.4 % (2-11); Neutrophils Absolute Auto 5.5 x10*3/uL (2.0-8.3); Neutrophils Percent Auto 53.5 % (45-73); Platelet Count 320 X10*3/uL (160-400); Red Blood Count 3.13 X10*6/uL (4.60-5.80); Red Cell Distribution Width 13.5 % (11.0-16.0); White Blood Count 10.3 X10*3/uL (4.8-10.8)
[2023-06-25 12:45] LABS: Blood Urea Nitrogen 12 mg/dL (9-16); Estimated Glomerular Filt Rate > 60
== END 2023-06-25 11:47 | disposition home or self-care (01) ==
LOC: HO.HVNA 11:46
PROVIDERS: Visit Provider Internal Medicine
DX: E11.621 Type 2 diabetes mellitus with foot ulcer (principal); L97.509 Non-pressure chronic ulcer of other part of unspecified foot with unspecified severity
CPT/HCPCS: 36415; 82565; 84520; 85025

== ENCOUNTER 2023-07-13 16:13 | Outpatient (REF) | payer MEDICARE, SELFPAY | END 2023-07-13 16:14 | disposition home or self-care (01) | LOC: HO.LNP 16:13 | PROVIDERS: Visit Provider Physician Assistant | DX: Z13.89 Encounter for screening for other disorder (principal) ==

== ENCOUNTER 2023-07-13 16:22 | Outpatient (REF) | payer MEDICARE, SELFPAY | END 2023-07-13 16:23 | disposition home or self-care (01) | LOC: HO.WCC 16:22 | PROVIDERS: Visit Provider Physician Assistant | DX: S91.301D Unspecified open wound, right foot, subsequent encounter (principal) | CPT/HCPCS: 87070; 87205 ==

== ENCOUNTER 2023-07-18 15:59 | Outpatient (REF) | payer MEDICARE, SELFPAY | END 2023-07-18 16:00 | disposition home or self-care (01) | LOC: HO.WCC 15:59 | PROVIDERS: Visit Provider Surgery | DX: S91.301A Unspecified open wound, right foot, initial encounter (principal); X58.XXXA Exposure to other specified factors, initial encounter; Y93.9 Activity, unspecified; Y92.9 Unspecified place or not applicable; Y99.9 Unspecified external cause status | CPT/HCPCS: 87070; 87073; 87077; 87186; 87205 ==

== ENCOUNTER 2023-07-20 11:16 | Outpatient (AMB) | payer MEDICARE, SELFPAY ==
--- NOTE | 2023-07-20 11:15 | MHC.OFFVIS ---
Intake Vital Signs 07/20/23 11:28 Weight 225 lb Pulse 79 Pulse Source Pulse Oximeter Temp 98.4 F Temp Source Oral Pulse Oximetry (%) 99 Intake Visit Reasons: f/u,1 mth Allergies No Known Allergies [No Known Allergies*] Allergy (Verified 07/20/23 11:29) HPI f/u,1 mth HPI Details He has no complaints PFSH Medical History PAD (peripheral artery disease) Ulcer of right great toe due to diabetes mellitus Anemia Social History Household Members: None Housing: House Do you presently have visiting nurse or other home services: No Unable to assess alcohol history related to: Unknown Patient Tobacco Use Status: Former Tobacco user e-Cigarette/Vaping Use: Never Used Second Hand Smoke Exposure: No service: No Review of Systems Const All systems reviewed & are unremarkable except as noted in HPI and below Physical Exam Vital Signs: Last Vital Signs Temp 98.4 F 07/20/23 11:28 Pulse 79 07/20/23 11:28 Pulse Ox 99 07/20/23 11:28 Const General: cooperative HEENT Head: Yes normal to inspection Face and sinus: Yes normal facial exam Mouth: Normal oral and palatal mucosa present Teeth and gingiva: dentition normal Eyes General: appearance normal, both eyes and all related structures Pupils: Equal, round and reactive pupils present Resp Effort & Inspection: normal respiratory effort Cardio Rate: regular rate Rhythm: regular rhythm GI Palpation (GI): Soft to palpation and nontender General: Yes no CVA tenderness Back/Spine/Pelvis Back: no CVA tenderness Skin General skin exam: no rashes or lesions noted Neuro General: moves all extremities Cranial nerves: Yes Equal, round and reactive pupils present Extrem Other: right great toe lesion Psych Appearance: grossly normal Assessment & Plan Assessment & Plan (1) Osteomyelitis: Code(s): M86.9 - Osteomyelitis, unspecified Qualifiers: Osteomyelitis type: other acute Osteomyelitis location: foot Laterality: right Qualified Code(s): M86.171 - Other acute osteomyelitis, right ankle and foot Plan Follow Wound Clinic prn need. Coding Level of Care Code Est Pt Level 3 (11726) Diagnoses Other acute osteomyelitis of right foot M86.171 Osteomyelitis type: other acute Osteomyelitis location: foot Laterality: right
[2023-07-20 11:28] VITALS: PULSE 79; TEMP 36.9; O2SAT 99
== END 2023-07-20 12:03 | disposition home or self-care (01) ==
PROVIDERS: PCP Hospitalist; Visit Provider Internal Medicine
DX: M86.171 Other acute osteomyelitis, right ankle and foot (principal)
CPT/HCPCS: 99213

== ENCOUNTER → 2023-07-20 11:16 | Outpatient (BNVA) | payer MEDICARE, SELFPAY | PROVIDERS: PCP Hospitalist; Visit Provider Internal Medicine | DX: M86.171 Other acute osteomyelitis, right ankle and foot (principal) | CPT/HCPCS: 99212 ==